=== PATIENT | male | born 1950 | race Caucasian/White ===

== ENCOUNTER → 2020-10-04 14:09 | Outpatient (BNVA) | payer MEDICARE, MEDICAID, SELFPAY | PROVIDERS: PCP Family Medicine; Visit Provider Urology | DX: Z76.89 Persons encountering health services in other specified circumstances (principal) | CPT/HCPCS: 99202 ==

== ENCOUNTER → 2020-10-27 14:08 | Outpatient (BNVA) | payer MEDICARE, MEDICAID, SELFPAY | PROVIDERS: PCP Family Medicine; Visit Provider Surgery Vascular Surgery | DX: I73.9 Peripheral vascular disease, unspecified (principal) | CPT/HCPCS: 99212 ==

== ENCOUNTER → 2020-11-01 14:13 | Outpatient (BNVA) | payer MEDICARE, MEDICAID, SELFPAY | PROVIDERS: PCP Family Medicine; Visit Provider Nurse Practitioner Gerontology | DX: E11.65 Type 2 diabetes mellitus with hyperglycemia (principal); E11.42 Type 2 diabetes mellitus with diabetic polyneuropathy; E11.22 Type 2 diabetes mellitus with diabetic chronic kidney disease; I12.9 Hypertensive chronic kidney disease with stage 1 through stage 4 chronic kidney disease, or unspecified chronic kidney disease; N18.30 Chronic kidney disease, stage 3 unspecified; Z79.4 Long term (current) use of insulin; E78.5 Hyperlipidemia, unspecified | CPT/HCPCS: 82947; 99212 ==

== ENCOUNTER 2020-12-01 14:03 | Outpatient (REF) | payer MEDICARE, MEDICAID, SELFPAY ==
--- NOTE | 2020-12-01 | US_ITS ---
EXAMINATION: COLOR-FLOW DUPLEX IMAGING OF THE UNILATERAL RIGHT LOWER EXTREMITY ARTERIAL SYSTEM. VELOCITY MEASUREMENTS THROUGHOUT THE FEMORAL ARTERIES WITH ANKLE-BRACHIAL PERIPHERAL ARTERIAL TESTING. CLINICAL INFORMATION: This is a 69-year-old male who status post left below-knee amputation. Peripheral arterial disease. Interventional Radiologist: Charlie Sol M.D., F.S.I.R., F.A.C.R. RIGHT FEMORAL RUNOFF VELOCITIES: The right common femoral artery measures 204 cm/s and biphasic. The right profunda femoral artery is 384 cm/s and is biphasic. Right proximal superficial femoral artery measures 85 cm/s and biphasic. Mid superficial femoral artery is 245 cm/s and biphasic. Distal right superficial femoral artery measures 59 cm/s and is biphasic. Right popliteal velocity measures 60 cm/s and is biphasic. The posterior tibial artery velocity measures 47 cm/s and was monophasic. The right ankle-brachial index is 0.48. The right ankle waveform is flattened. There is a question of subcutaneous diffuse edema. US/US DAVON complete IMPRESSION: 1. There is hemodynamically significant atherosclerotic disease involving the right lower extremity inflow and outflow. There is a hemodynamically significant stenosis in the region of the right common femoral artery as well as the mid right superficial femoral artery.
--- NOTE | 2020-12-01 14:08 | US_ITS ---
EXAMINATION: COLOR-FLOW DUPLEX IMAGING OF THE UNILATERAL RIGHT LOWER EXTREMITY ARTERIAL SYSTEM. VELOCITY MEASUREMENTS THROUGHOUT THE FEMORAL ARTERIES WITH ANKLE-BRACHIAL PERIPHERAL ARTERIAL TESTING. CLINICAL INFORMATION: This is a 69-year-old male who status post left below-knee amputation. Peripheral arterial disease. Interventional Radiologist: Charlie Sol M.D., F.S.I.R., F.A.C.R. RIGHT FEMORAL RUNOFF VELOCITIES: The right common femoral artery measures 204 cm/s and biphasic. The right profunda femoral artery is 384 cm/s and is biphasic. Right proximal superficial femoral artery measures 85 cm/s and biphasic. Mid superficial femoral artery is 245 cm/s and biphasic. Distal right superficial femoral artery measures 59 cm/s and is biphasic. Right popliteal velocity measures 60 cm/s and is biphasic. The posterior tibial artery velocity measures 47 cm/s and was monophasic. The right ankle-brachial index is 0.48. The right ankle waveform is flattened. There is a question of subcutaneous diffuse edema. US/US arterial duplex LE RT IMPRESSION: 1. There is hemodynamically significant atherosclerotic disease involving the right lower extremity inflow and outflow. There is a hemodynamically significant stenosis in the region of the right common femoral artery as well as the mid right superficial femoral artery.
== END 2020-12-01 14:04 | disposition home or self-care (01) ==
LOC: HO.US 14:03
PROVIDERS: Visit Provider Surgery Vascular Surgery
DX: I70.213 Atherosclerosis of native arteries of extremities with intermittent claudication, bilateral legs (principal)
CPT/HCPCS: 93923; 93926

== ENCOUNTER → 2020-12-15 13:50 | Outpatient (BNVA) | payer MEDICARE, MEDICAID, SELFPAY | PROVIDERS: PCP Family Medicine; Referring Provider Family Medicine; Visit Provider Surgery Vascular Surgery | DX: I73.9 Peripheral vascular disease, unspecified (principal) | CPT/HCPCS: 99212 ==

== ENCOUNTER → 2021-01-17 15:32 | Outpatient (BNVA) | payer MEDICARE, MEDICAID, SELFPAY | PROVIDERS: PCP Family Medicine; Visit Provider Surgery Vascular Surgery | DX: Z89.512 Acquired absence of left leg below knee (principal) | CPT/HCPCS: 99212 ==

== ENCOUNTER 2021-01-23 06:40 | Day surgery (SDC) | payer MEDICARE, MEDICAID, SELFPAY ==
[2021-01-23 06:55] VITALS: BMI 27.0
--- NOTE | 2021-01-23 07:27 | P.CONAN_ITS ---
[facility] Active Problems Active Problems: All Active Problems (Updated 11/01/20 @ 15:30 by HEVER Ibarra) Status post below-knee amputation of left lower extremity (Acute) Type 2 diabetes mellitus with polyneuropathy (Acute) Type 2 diabetes mellitus with chronic kidney disease (Acute) Chronic kidney disease, stage 3 (Acute) Type 2 diabetes mellitus with hyperglycemia, with long-term current use of insulin (Acute) Essential hypertension (Acute) Hyperlipidemia LDL goal <70 (Acute) PAD (peripheral artery disease) (Acute) Diabetic neuropathy associated with diabetes mellitus due to underlying condition (Acute) Urinary incontinence (Acute) Past Medical History Medical History Chronic kidney disease, stage 3 Depression Essential hypertension Hyperlipidemia LDL goal <70 Peripheral neuropathy Type 2 diabetes mellitus with chronic kidney disease Type 2 diabetes mellitus with hyperglycemia, with long-term current use of insulin Type 2 diabetes mellitus with polyneuropathy Family History Family History Father Diabetes Mother Diabetes Son Diabetes Surgical History Surgical History History of below-knee amputation of left lower extremity Hx of colonoscopy Social History Social History Smoking Status: Current every day smoker Cigarettes Per Day: 3 Use of substances other than those prescribed or required for medical reasons: No Advance Directives: No Advance Directives Information Provided: Yes Meds Allergies Allergy/AdvReac Type Severity Reaction Status Date / Time No Known Allergies Allergy Verified 01/17/21 15:32 [No Known Allergies*] Active Medications: Current Medications Generic Name Dose Route Start Last Admin Trade Name Freq PRN Reason Stop Dose Admin Fentanyl 25 mcg 01/23/21 07:13 Fentanyl Citrate/Pf 100 Mcg/2 Ml Vial IVPUSH Q5M PRN Pain, Moderate (Pain Scale 4-6 Fentanyl 50 mcg 01/23/21 07:14 Fentanyl Citrate/Pf 100 Mcg/2 Ml Vial IVPUSH Q5M PRN Pain, Severe (Pain Scale 7-10) Oxycodone HCl 5 mg 01/23/21 07:14 Oxycodone Hcl Immed Release 5 Mg Tablet PO ONCE PRN Pain, Severe (Pain Scale 7-10) Home Medications Medication Instructions Recorded Confirmed Last Taken Type amlodipine 10 mg tablet 10 mg PO DAILY 10/04/20 11/01/20 Unknown History aspirin 81 mg chewable tablet 1 tab PO DAILY 10/04/20 11/01/20 Unknown History atorvastatin 80 mg tablet 80 mg PO BEDTIME 10/04/20 11/01/20 Unknown History blood sugar diagnostic #10 ea 10/04/20 11/01/20 Unknown History bupropion HCl 100 mg tablet,12 hr 100 mg PO QAM 10/04/20 11/01/20 Unknown History sustained-release carvedilol 6.25 mg tablet 6.25 mg PO BID 10/04/20 11/01/20 Unknown History citalopram 40 mg tablet 40 mg PO DAILY 10/04/20 11/01/20 Unknown History ergocalciferol (vitamin D2) 1,250 1,250 mcg PO QWEEK 10/04/20 11/01/20 Unknown History mcg (50,000 unit) capsule folic acid 1 mg tablet 1 mg PO QAM 10/04/20 11/01/20 Unknown History furosemide 20 mg tablet 20 mg PO QAM 10/04/20 11/01/20 Unknown History hydralazine 50 mg tablet 50 mg PO TID 10/04/20 11/01/20 Unknown History melatonin 5 mg tablet 5 mg PO BEDTIME PRN 10/04/20 11/01/20 Unknown History pen needle, diabetic 32 gauge x #50 ea 10/04/20 11/01/20 Unknown History thiamine HCl (vitamin B1) 100 mg 100 mg PO DAILY 10/04/20 11/01/20 Unknown History tablet lancets #100 ea 11/01/20 11/01/20 Unknown History Exam Exam Date and Time: January 23, 2021 76 Height,Weight and Vital Signs: Height 5 ft 8 in Weight 80.739 kg Airway Mallampati Class: III Loose/Missing/Broken Teeth: Yes, Upper and Lower
--- NOTE | 2021-01-23 07:37 | PC.NURSE ---
CONGESTED. HX OF SMOKING. COUHGS AND CONGESTION GOES AWAY.
[2021-01-23 08:30] LABS: Glucose, Whole Blood 207 mg/dL (60-115)
[2021-01-23 08:37] VITALS: BP 194/81; PULSE 72; RESP 12; TEMP 36.3; O2SAT 100
[2021-01-23 08:42] VITALS: BP 186/78; PULSE 69; RESP 16; O2SAT 100
[2021-01-23 08:47] VITALS: BP 183/76; PULSE 69; RESP 18; O2SAT 99
--- NOTE | 2021-01-23 08:47 | MHC.SHP ---
Pre-Procedural Eval Section B Chief Complaint: amp complications Allergies: Allergies Allergy/AdvReac Type Severity Reaction Status Date / Time No Known Allergies Allergy Verified 01/17/21 15:32 [No Known Allergies*] Plan I have reviewed the history and physical and performed a pertinent physical examination on my patient. No changes have occurred unless specified.
--- NOTE | 2021-01-23 08:47 | W.PM.OPN ---
Operative Note Operative Note Date of Service: 01/23/21 Narrative: Operative note by [facility] Preoperative diagnosis: Nonhealing left lateral BKA stump Postoperative diagnosis: Same Procedure: Revision of left below-knee stump Surgeon:Vick Yin M.D. Transcription Manager: Payam Anesthesia: General Specimens: 1 Drains: None Estimated blood loss: Minimal Indications: 70-year-old gentleman with below-knee amputation. He has developed a left lateral side abscess which was drained in the office. He continues to have a significant amount of pain in that area. He does have a nonhealing tract. He now presents for revision of this below-knee stump. The patient has signed the informed consent after reviewing risks, complications, benefits, and alternatives previously discussed with the patient in my office. The patient was given the opportunity to ask any additional questions or voice any concerns. All questions were answered to the patient's satisfaction. Procedure in detail: Patient was taken to the operating room prior to which timeout was called for patient identification site verification. Left leg was prepped and draped in standard surgical fashion. A curvilinear ellipse was made on the lateral aspect approximately 10 cm in diameter. This was taken down in to the subcu soft tissue. There was a cyst like material encountered which was excised in its entirety. Amnio fill was placed within the wound. Deep layer was reapproximated using 2 0 Polysorb superficial layer with 3-0 poly Sorb finally skin was closed with 3-0 nylon in a mattress fashion. Sterile dressing was applied. At the end of the case sponge instrument counts were correct patient. Patient tolerated the procedure well and returned to recovery with stable vitals. This note is constructed using voice recognition software. While every effort has been made to ensure accuracy, service tech/welder errors may have been included. Thank you for allowing me to participate in the care of your patient. Yours sincerely, Vick Yin MD, FACS, R.P.V.I.
[2021-01-23 08:52] VITALS: BP 173/72; PULSE 73; RESP 17; O2SAT 96
[2021-01-23 09:07] VITALS: BP 179/73; PULSE 74; RESP 17; TEMP 36.3; O2SAT 96
[2021-01-23 09:22] VITALS: BP 181/76; PULSE 73; RESP 17; TEMP 36.3; O2SAT 96
== END 2021-01-23 09:56 | disposition home or self-care (01) ==
PROVIDERS: PCP Family Medicine; Visit Provider Surgery Vascular Surgery
PROC: (CPT 27884; principal; 2021-01-23 07:30)
DX: T87.89 Other complications of amputation stump (principal); Z89.512 Acquired absence of left leg below knee; E11.22 Type 2 diabetes mellitus with diabetic chronic kidney disease; E11.65 Type 2 diabetes mellitus with hyperglycemia; E11.42 Type 2 diabetes mellitus with diabetic polyneuropathy; I12.9 Hypertensive chronic kidney disease with stage 1 through stage 4 chronic kidney disease, or unspecified chronic kidney disease; N18.30 Chronic kidney disease, stage 3 unspecified; F32.9 Major depressive disorder, single episode, unspecified; E78.5 Hyperlipidemia, unspecified; Z79.4 Long term (current) use of insulin; F17.210 Nicotine dependence, cigarettes, uncomplicated; Z79.899 Other long term (current) drug therapy; Z79.82 Long term (current) use of aspirin
CPT/HCPCS: 27884; 82947; 88305; J0690; J1100; J2250; J2405; J3010; J3590

== ENCOUNTER → 2021-02-07 15:09 | Outpatient (BNVA) | payer MEDICARE, MEDICAID, SELFPAY | PROVIDERS: PCP Family Medicine; Visit Provider Surgery Vascular Surgery | DX: I73.9 Peripheral vascular disease, unspecified (principal) | CPT/HCPCS: 99212 ==

== ENCOUNTER → 2021-11-29 14:20 | Outpatient (BNVA) | payer MEDICARE, MEDICAID, SELFPAY | PROVIDERS: PCP Family Medicine; Visit Provider Urology | DX: R39.15 Urgency of urination (principal); N32.81 Overactive bladder; E11.42 Type 2 diabetes mellitus with diabetic polyneuropathy | CPT/HCPCS: 51798; 99212 ==

== ENCOUNTER → 2021-12-20 12:12 | Outpatient (BNVA) | payer MEDICARE, MEDICAID, SELFPAY | PROVIDERS: PCP Family Medicine; Referring Provider Family Medicine; Visit Provider Internal Medicine | DX: I25.10 Atherosclerotic heart disease of native coronary artery without angina pectoris (principal); I35.0 Nonrheumatic aortic (valve) stenosis; E11.22 Type 2 diabetes mellitus with diabetic chronic kidney disease; I12.9 Hypertensive chronic kidney disease with stage 1 through stage 4 chronic kidney disease, or unspecified chronic kidney disease; N18.30 Chronic kidney disease, stage 3 unspecified; E78.5 Hyperlipidemia, unspecified; Z86.73 Personal history of transient ischemic attack (TIA), and cerebral infarction without residual deficits; Z79.4 Long term (current) use of insulin | CPT/HCPCS: 93005; 99212 ==

== ENCOUNTER 2022-02-19 18:34 | Inpatient (IN) | payer MEDICARE, MEDICAID, SELFPAY ==
[2022-02-19] VITALS (9 sets, daily range): BP systolic 147–154; BP diastolic 59–63; PULSE 70–75; RESP 15–25; TEMP 36.7–37.3; O2SAT 90–99; BMI 22.0
--- NOTE | ~2022-02-19 | CT_ITS ---
EXAMINATION: CT HEAD WITHOUT CONTRAST CT CERVICAL SPINE WITHOUT CONTRAST CLINICAL INFORMATION: Fall. COMPARISON: CT head 01/08/2019 TECHNIQUE: Imaging was performed from the skull base to vertex without intravenous administration of contrast. In addition, helical noncontrast CT imaging was acquired through the cervical spine and source images were reviewed along with axial reconstructions and sagittal and coronal MPRs. [This CT examination was performed using dose optimization techniques as appropriate, variously including the following: *Automated exposure control *Adjustment of mA and/or kV according to patient size (this includes techniques or standardized protocols for targeted exams where dose is matched to indication/reason for exam; i.e. extremities or head) *Use of iterative reconstruction technique] DLP: 1111 mGy-cm FINDINGS: HEAD: No intracranial mass, hemorrhage, or midline shift is visualized. There is generalized global volume loss. There is moderate prominence of the ventricles and the sulci . There is marked hypodensity of the periventricular white matter due to chronic small vessel ischemic disease. There are vascular calcifications of the internal carotid arteries bilaterally. No extra-axial collections are identified. The paranasal sinuses and mastoid air cells are well aerated. CERVICAL SPINE: There is no evidence of acute cervical spine fracture. Vertebral bodies remain normal in height. Cervical vertebrae have normal alignment. Cervical disc heights are normal. The facet joints are normal. There are vascular calcification of the carotids and vertebral arteries. Limited assessment of the lung apices is unremarkable. CT/CT cervical spine wo con IMPRESSION: 1. No acute intracranial pathology. 2. No CT evidence of acute cervical spine fracture or traumatic subluxation
--- NOTE | ~2022-02-19 | XR_ITS ---
EXAMINATION: XR CHEST CLINICAL INFORMATION: Cough and fever COMPARISON: 05/11/2020 TECHNIQUE: Frontal view of the chest was obtained. FINDINGS: The heart and pulmonary vessels appear normal. There is a new area of patchy consolidation in the left mid lung. Previously seen left basilar infiltrate on 05/11/2020 has cleared. The right lung is clear. No pleural effusions are seen XR/XR chest 1V IMPRESSION: New left midlung infiltrate consistent with pneumonia.
--- NOTE | ~2022-02-19 | CT_ITS ---
EXAMINATION: CT HEAD WITHOUT CONTRAST CT CERVICAL SPINE WITHOUT CONTRAST CLINICAL INFORMATION: Fall. COMPARISON: CT head 01/08/2019 TECHNIQUE: Imaging was performed from the skull base to vertex without intravenous administration of contrast. In addition, helical noncontrast CT imaging was acquired through the cervical spine and source images were reviewed along with axial reconstructions and sagittal and coronal MPRs. [This CT examination was performed using dose optimization techniques as appropriate, variously including the following: *Automated exposure control *Adjustment of mA and/or kV according to patient size (this includes techniques or standardized protocols for targeted exams where dose is matched to indication/reason for exam; i.e. extremities or head) *Use of iterative reconstruction technique] DLP: 1111 mGy-cm FINDINGS: HEAD: No intracranial mass, hemorrhage, or midline shift is visualized. There is generalized global volume loss. There is moderate prominence of the ventricles and the sulci . There is marked hypodensity of the periventricular white matter due to chronic small vessel ischemic disease. There are vascular calcifications of the internal carotid arteries bilaterally. No extra-axial collections are identified. The paranasal sinuses and mastoid air cells are well aerated. CERVICAL SPINE: There is no evidence of acute cervical spine fracture. Vertebral bodies remain normal in height. Cervical vertebrae have normal alignment. Cervical disc heights are normal. The facet joints are normal. There are vascular calcification of the carotids and vertebral arteries. Limited assessment of the lung apices is unremarkable. CT/CT head/brain wo con IMPRESSION: 1. No acute intracranial pathology. 2. No CT evidence of acute cervical spine fracture or traumatic subluxation
--- NOTE | 2022-02-19 19:01 | ED.WEAKNESS ---
HPI - Weakness General Chief complaint: Failure to Thrive Stated complaint: general malaise Time Seen by Provider: 02/19/22 19:01 Source: EMS Mode of arrival: EMS Limitations: altered mental status History of Present Illness HPI Narrative: Patient with history of dementia brought by EMS for increased lethargic, malaise, fever 100.6 with chills and been coughing for last 3 days. Yesterday patient slumped down when he tried to get up from his bed without asking for help. Patient not eating since yesterday and sleeping all the time Related Data Home Medications Medication Instructions Recorded Confirmed amlodipine 10 mg tablet 10 mg PO DAILY 10/04/20 02/20/22 aspirin 81 mg chewable tablet 1 tab PO DAILY 10/04/20 02/20/22 atorvastatin 80 mg tablet 80 mg PO BEDTIME 10/04/20 02/20/22 blood sugar diagnostic #10 ea 10/04/20 02/20/22 bupropion HCl 100 mg tablet,12 hr 100 mg PO QAM 10/04/20 02/20/22 sustained-release carvedilol 6.25 mg tablet 6.25 mg PO BID 10/04/20 02/20/22 citalopram 40 mg tablet 40 mg PO DAILY 10/04/20 02/20/22 ergocalciferol (vitamin D2) 1,250 1,250 mcg PO QWEEK 10/04/20 02/20/22 mcg (50,000 unit) capsule folic acid 1 mg tablet 1 mg PO QAM 10/04/20 02/20/22 furosemide 20 mg tablet 20 mg PO QAM 10/04/20 02/20/22 hydralazine 50 mg tablet 50 mg PO TID 10/04/20 02/20/22 melatonin 5 mg tablet 5 mg PO BEDTIME PRN 10/04/20 02/20/22 pen needle, diabetic 32 gauge x #50 ea 10/04/20 02/20/22 thiamine HCl (vitamin B1) 100 mg 100 mg PO DAILY 10/04/20 02/20/22 tablet lancets #100 ea 11/01/20 02/20/22 Previous Rx's Medication Instructions Recorded dulaglutide 1.5 mg/0.5 mL 1.5 mg (0.5 mL) SUBCUT QWEEK 28 11/01/20 subcutaneous pen injector Days #2 ml (Trulicity) insulin lispro 100 unit/mL 8 unit (0.08 mL) SUBCUT TID #15 ml 11/01/20 subcutaneous pen insulin degludec 200 unit/mL (3 24 unit (0.12 mL) SUBCUT DAILY 30 11/09/20 mL) subcutaneous pen (Tresiba Days #9 ml FlexTouch U-200 insulin) oxycodone-acetaminophen 5 mg-325 1 tab PO Q4-6H PRN #10 tab 01/23/21 mg tablet (Percocet) mirabegron 25 mg tablet,extended 25 mg PO QAM 90 Days #90 tab 11/29/21 release 24 hr (Myrbetriq) tamsulosin 0.4 mg capsule 0.4 mg PO BEDTIME 90 Days #90 cap 11/29/21 Allergies Allergy/AdvReac Type Severity Reaction Status Date / Time No Known Allergies Allergy Verified 12/20/21 12:34 [No Known Allergies*] Review of Systems Review of Systems: Yes all other systems are reviewed and are negative PMFSH Past Medical History Medical History Chronic kidney disease, stage 3 CVA (cerebral vascular accident) Depression Essential hypertension Hyperlipidemia LDL goal <70 Peripheral neuropathy Type 2 diabetes mellitus with chronic kidney disease Type 2 diabetes mellitus with hyperglycemia, with long-term current use of insulin Type 2 diabetes mellitus with polyneuropathy Surgical History History of below-knee amputation of left lower extremity Hx of colonoscopy Family History Family History Father Diabetes Mother Diabetes Son Diabetes Social History Social History Patient Tobacco Use Status: Current everyday Tobacco user Cigarettes Per Day: 6 Advance Directives: No Advance Directives Information Provided: No Physical Exam Vital Signs: Vital Signs: Last Vital Signs Temp 99.1 F 02/19/22 21:00 Pulse 73 02/20/22 00:50 Resp 25 H 02/19/22 23:42 BP 154/59 H 02/19/22 21:40 Pulse Ox 96 02/20/22 00:50 Oxygen Flow Rate 2 02/19/22 21:41 BMI result Body Mass Index 22.0 Appearance: Lethargic but awake No acute distress. Eyes: PERRLA, No Nystagmus ENT: Pharynx normal. Oral Mucosa moist Neck: Normal inspection. Neck supple. CVS: Normal heart rate and rhythm. Pulses normal. Respiratory: No respiratory distress. Equal air entry bilateral, occasional crackles bilateral Abdomen: Soft and nontender. Bowel sounds are present, no mass palpable, no CVA tenderness Skin: Skin warm and dry. Normal skin color. Normal skin turgor. Extremities: No lower extremity edema. No calf tenderness L BKA Neuro: Oriented X 1-2. No motor deficit. MDM - Weakness MDM Narrative Medical decision making narrative: Patient with 3 days of cough malaise with IgE fever chills workup showed leukocytosis of 25.5 potassium of 3.1 with creatinine of 3.14 increased from 1.95 in 2019 chest x-ray showed left mid lung pneumonia. COVID-19 was negative patient was given IV fluids IV Rocephin blood cultures were drawn lactic acid level was 0.8 after IV fluids patient more awake and alert almost back to baseline will admit patient for IV antibiotic for pneumonia also will do CT scan of the head has patient fell at home CT scan of the head and C-spine negative for anything acute Lab Data Attestation: I reviewed the patient's lab results. Result diagrams: 02/19/22 19:38 02/19/22 19:38 Labs: Lab Results 02/19/22 02/19/22 02/19/22 Range/Units 19:37 19:37 19:38 WBC 25.5 H (4.8-10.8) X10*3/uL RBC 4.42 L (4.60-5.80) X10*6/uL Hgb 11.2 L (14.0-18.0) g/dl Hct 34.3 L (42.0-52.0) % MCV 77.6 L (80.0-98.0) fL MCH 25.3 L (27.0-33.0) pg MCHC 32.7 (31.0-36.0) g/dl RDW 14.3 (11.0-16.0) % Plt Count 237 (160-400) X10*3/uL MPV 10.5 (9.4-12.4) fL Immature Gran % (Auto) 3.5 H (0.0-0.4) % Neut % (Auto) 83.2 H (45-73) % Lymph % (Auto) 7.0 L (20-40) % [place] % (Auto) 6.1 (2-11) % Eos % (Auto) 0.0 (0-4) % Baso % (Auto) 0.2 (0-2) % Lymph # (Auto) 1.8 (1.2-4.9) X10*3/uL [place] # (Auto) 1.5 H (0.1-1.2) X10*3/uL Eos # (Auto) 0.0 (0.0-0.4) X10*3/uL Baso # (Auto) 0.0 (0.0-0.2) X10*3/uL Abs Immat Gran (auto) 0.88 H (0.00-0.03) X10*3/uL Absolute Neuts (auto) 21.2 H (2.0-8.3) x10*3/uL Absolute Nucleated RBC 0.000 (0.0-0.012) X10*3/uL Nucleated RBC % (auto) 0.0 (0.0-0.2) /100WBC Smear Tech's Comments VERIFIED Sodium (135-145) mmol/L Potassium (3.3-5.1) mmol/L Chloride (96-108) mmol/L Carbon Dioxide (22-29) mmol/L Anion Gap (12-20) BUN (9-16) mg/dL Creatinine (0.5-1.4) mg/dL Estim Creat Clear Calc Estimated GFR Random Glucose (60-115) mg/dL Lactic Acid 0.8 (0.5-2.0) mmol/L Calcium (8.4-10.2) mg/dL Magnesium (1.6-2.6) mg/dL Total Bilirubin (0.0-1.0) mg/dL AST (5-37) U/L ALT (0-40) U/L Alkaline Phosphatase (39-117) U/L Total Protein (6.5-8.0) g/dL Albumin (3.5-5.0) g/dL Lipase (8-78) U/L COVID-19 (MAC) Negative (Negative) COVID-19 Clin Com See Note 02/19/22 Range/Units 19:38 WBC (4.8-10.8) X10*3/uL RBC (4.60-5.80) X10*6/uL Hgb (14.0-18.0) g/dl Hct (42.0-52.0) % MCV (80.0-98.0) fL MCH (27.0-33.0) pg MCHC (31.0-36.0) g/dl RDW (11.0-16.0) % Plt Count (160-400) X10*3/uL MPV (9.4-12.4) fL Immature Gran % (Auto) (0.0-0.4) % Neut % (Auto) (45-73) % Lymph % (Auto) (20-40) % [place] % (Auto) (2-11) % Eos % (Auto) (0-4) % Baso % (Auto) (0-2) % Lymph # (Auto) (1.2-4.9) X10*3/uL [place] # (Auto) (0.1-1.2) X10*3/uL Eos # (Auto) (0.0-0.4) X10*3/uL Baso # (Auto) (0.0-0.2) X10*3/uL Abs Immat Gran (auto) (0.00-0.03) X10*3/uL Absolute Neuts (auto) (2.0-8.3) x10*3/uL Absolute Nucleated RBC (0.0-0.012) X10*3/uL Nucleated RBC % (auto) (0.0-0.2) /100WBC Smear Tech's Comments Sodium 130 L (135-145) mmol/L Potassium 3.1 L (3.3-5.1) mmol/L Chloride 96 (96-108) mmol/L Carbon Dioxide 21 L (22-29) mmol/L Anion Gap 16 (12-20) BUN 47 H (9-16) mg/dL Creatinine 3.14 H (0.5-1.4) mg/dL Estim Creat Clear Calc 19.7 Estimated GFR 20 Random Glucose 119 H (60-115) mg/dL Lactic Acid (0.5-2.0) mmol/L Calcium 8.1 L (8.4-10.2) mg/dL Magnesium 2.0 (1.6-2.6) mg/dL Total Bilirubin 0.8 (0.0-1.0) mg/dL AST 54 H (5-37) U/L ALT 37 (0-40) U/L Alkaline Phosphatase 73 (39-117) U/L Total Protein 6.4 L (6.5-8.0) g/dL Albumin 3.2 L (3.5-5.0) g/dL Lipase 17 (8-78) U/L COVID-19 (MAC) (Negative) COVID-19 Clin Com Discharge Plan Discharge Clinical Impression: Pneumonia, Acute renal failure Patient Disposition: Admitted As Inpatient
[2022-02-19 19:46] LABS: Basophils Percent Auto 0.2 % (0-2); Hematocrit 34.3 % (42.0-52.0); Hemoglobin 11.2 g/dl (14.0-18.0); Imm Gran Abs Auto 0.88 X10*3/uL (0.00-0.03); Imm Gran Pct Auto 3.5 % (0.0-0.4); Lymphocytes Absolute Auto 1.8 X10*3/uL (1.2-4.9); MANUAL DIFF FLAG SCAN; Mean Corpuscular HGB Conc 32.7 g/dl (31.0-36.0); Mean Corpuscular Hemoglobin 25.3 pg (27.0-33.0); Mean Corpuscular Volume 77.6 fL (80.0-98.0); Mean Platelet Volume 10.5 fL (9.4-12.4); Monocytes Absolute Auto 1.5 X10*3/uL (0.1-1.2); Monocytes Percent Auto 6.1 % (2-11); Neutrophils Absolute Auto 21.2 x10*3/uL (2.0-8.3); Neutrophils Percent Auto 83.2 % (45-73); Platelet Count 237 X10*3/uL (160-400); Red Blood Count 4.42 X10*6/uL (4.60-5.80); Red Cell Distribution Width 14.3 % (11.0-16.0); SCAN SMEAR FLAG 1; White Blood Count 25.5 X10*3/uL (4.8-10.8)
[2022-02-19 20:00] LABS: COVID-19 Test Negative (Negative); Lactic Acid 0.8 mmol/L (0.5-2.0)
[2022-02-19 20:03] LABS: SLIDE REVIEW VERIFIED
[2022-02-19 20:04] LABS: Alanine Aminotransferase 37 U/L (0-40); Albumin Level 3.2 g/dL (3.5-5.0); Alkaline Phosphatase 73 U/L (39-117); Anion Gap 16 (12-20); Aspartate Amino Transferase 54 U/L (5-37); Bilirubin Total 0.8 mg/dL (0.0-1.0); Blood Urea Nitrogen 47 mg/dL (9-16); Calcium 8.1 mg/dL (8.4-10.2); Carbon Dioxide 21 mmol/L (22-29); Chloride 96 mmol/L (96-108); Creatinine Clr Calc Pharmacy 19.7; Estimated Glomerular Filt Rate 20; Glucose Random 119 mg/dL (60-115); Lipase 17 U/L (8-78); Potassium 3.1 mmol/L (3.3-5.1); Sodium 130 mmol/L (135-145); Total Protein 6.4 g/dL (6.5-8.0)
[2022-02-19] MEDS: 0.9 % Sodium Chloride 1,000 ML 999 ML IV ×2 (20:30→22:35)
[2022-02-19] MEDS: cefTRIAXone sodium 1 GM in 0.9 % Sodium Chloride 50 ML IV (21:39)
[2022-02-19] MEDS: Doxycycline Hyclate 100 MG in 0.9 % Sodium Chloride 250 ML 166.67 MG IV (22:29)
[2022-02-19] MEDS: Potassium Chloride Packet 20 MEQ PACKET 40 MEQ PO (22:29)
[2022-02-19] MEDS: Acetaminophen Supp 650 MG SUPP.RECT PR (23:03)
--- NOTE | 2022-02-19 23:30 | PC.NURSE ---
patient noted to be incontinent of urine, incontinence care provided with Ed RN, condom catheter placed to collect urine sample.
[2022-02-19] MEDS: Albuterol/Iprat 2.5/0.5MG 3 ML AMPUL.NEB INHALE (23:40)
[2022-02-20] VITALS (8 sets, daily range): BP systolic 154–180; BP diastolic 62–66; PULSE 73–83; RESP 16–26; TEMP 36.8–37.2; O2SAT 93–100
[2022-02-20 01:09] LABS: Influenza A Positive (Negative); Influenza B2 Negative (Negative)
--- NOTE | 2022-02-20 01:16 | PM.IMHP ---
History of Present Illness Date of Service: 02/20/22 Chief Complaint: weakness Latvian-speaking only, history is obtained with the help of international guest coordinator This is a 71-year-old male with past medical history of CVA, CKD, HTN, HLD, peripheral neuropathy status post BKA of the left, diabetes who presents to the hospital with complaints of generalized weakness, cough, trouble breathing. Patient reports that his symptoms started about 5 days ago, associated with a nonproductive cough, generalized weakness, and shortness of breath. Patient denies any sputum production but, reports fever of 100.6 at home, low appetite, has not been eating Or drinking well for the past 4 days due to loss of appetite. he is complaining of neck, chest, and generalized pain, he has also had diarrhea for the past 3 days, about 2-3 episodes daily, nonbloody, he is complaining of urinary frequency that is chronic but also dysuria for the past few days. Patient otherwise denies any headache, change in vision, no numbness weakness or tingling, no abdominal pain nausea or vomiting. on arrival to the ED patient noted to have respiratory rate of 25, blood pressure stable, satting 90% on room air, currently on 2 L of oxygen satting 100% Labs are significant for WBC count of 25, hemoglobin of 11.2, hematocrit of 34.3 which is around his baseline, sodium of 130, potassium 3.1, creatinine of 3.14 with a baseline around 2, AST of 54, albumin of 3.2, UA positive for leukocyte Estrace Interest WBC, COVID-19 negative, influenza A positive positive chest x-ray shows left mid lung infiltrate consistent with pneumonia head and cervical spine CT showed no acute intracranial pathology or cervical spine fracture or trauma given PARTH, pneumonia with CURB- 65>2 patient requires a medically necessary admission for management and close monitoring as he would do poorly if treated outpatient Review of Systems Review of Systems: Yes all other systems are reviewed and are negative [facility] Medical History Chronic kidney disease, stage 3 CVA (cerebral vascular accident) Depression Essential hypertension Hyperlipidemia LDL goal <70 Peripheral neuropathy Type 2 diabetes mellitus with chronic kidney disease Type 2 diabetes mellitus with hyperglycemia, with long-term current use of insulin Type 2 diabetes mellitus with polyneuropathy Family History Father Diabetes Mother Diabetes Son Diabetes Surgical History History of below-knee amputation of left lower extremity Hx of colonoscopy Social History Patient Tobacco Use Status: Current everyday Tobacco user Cigarettes Per Day: 6 Advance Directives: No Advance Directives Information Provided: No Meds Allergies Allergy/AdvReac Type Severity Reaction Status Date / Time No Known Allergies Allergy Verified 12/20/21 12:34 [No Known Allergies*] Active Medications: Current Medications Acetaminophen (Acetaminophen 325 Mg Tablet) 650 mg PO Q6H PRN PRN Reason: Pain, Mild (Pain Scale 1-3) Docusate Sodium (Docusate Sodium 100 Mg Capsule) 100 mg PO DAILY PRN PRN Reason: Constipation Enoxaparin Sodium (Enoxaparin Sodium 40 Mg/0.4 Ml Syringe) 40 mg SUBCUT Q24H [facility] Azithromycin 500 mg/ Sodium (Chloride) 250 mls @ 125 mls/hr IV Q24H [facility] Ceftriaxone Sodium 1 gm/ (Sodium Chloride) 50 mls @ 100 mls/hr IV Q24H [facility] Ondansetron HCl (Ondansetron Hcl 4 Mg/2 Ml Vial) 4 mg IVPUSH Q8H PRN PRN Reason: Nausea and Vomiting Oseltamivir Phosphate (Oseltamivir Phosphate 30 Mg Capsule) 30 mg PO Q24H [facility] Sodium Chloride (0.9 % Sodium Chloride Flush 3 Ml Syringe) 3 ml IVFLUSH QSHIFT [facility] Home Medications Medication Instructions Recorded Confirmed Last Taken Type amlodipine 10 mg tablet 10 mg PO DAILY 10/04/20 02/20/22 Unknown History aspirin 81 mg chewable tablet 1 tab PO DAILY 10/04/20 02/20/22 Unknown History atorvastatin 80 mg tablet 80 mg PO BEDTIME 10/04/20 02/20/22 Unknown History blood sugar diagnostic #10 ea 10/04/20 02/20/22 Unknown History bupropion HCl 100 mg tablet,12 hr 100 mg PO QAM 10/04/20 02/20/22 Unknown History sustained-release carvedilol 6.25 mg tablet 6.25 mg PO BID 10/04/20 02/20/22 Unknown History citalopram 40 mg tablet 40 mg PO DAILY 10/04/20 02/20/22 Unknown History ergocalciferol (vitamin D2) 1,250 1,250 mcg PO QWEEK 10/04/20 02/20/22 Unknown History mcg (50,000 unit) capsule folic acid 1 mg tablet 1 mg PO QAM 10/04/20 02/20/22 Unknown History furosemide 20 mg tablet 20 mg PO QAM 10/04/20 02/20/22 Unknown History hydralazine 50 mg tablet 50 mg PO TID 10/04/20 02/20/22 Unknown History melatonin 5 mg tablet 5 mg PO BEDTIME PRN 10/04/20 02/20/22 Unknown History pen needle, diabetic 32 gauge x #50 ea 10/04/20 02/20/22 Unknown History thiamine HCl (vitamin B1) 100 mg 100 mg PO DAILY 10/04/20 02/20/22 Unknown History tablet lancets #100 ea 11/01/20 02/20/22 Unknown History Physical Exam Vital Signs and Narrative: Vital Signs: Last Vital Signs Temp 99.1 F 02/19/22 21:00 Pulse 73 02/20/22 00:50 Resp 25 H 02/19/22 23:42 BP 154/59 H 02/19/22 21:40 Pulse Ox 96 02/20/22 00:50 Oxygen Flow Rate 2 02/19/22 21:41 BMI result Body Mass Index 22.0 Const: General: cooperative and no acute distress Orientation/consciousness: patient oriented x3 Eyes: General: appearance normal, both eyes and all related structures Pupils: Equal, round and reactive pupils present Resp: Effort & Inspection: normal respiratory effort Auscultation: clear to auscultation bilaterally Cardio: Rate: regular rate Rhythm: regular rhythm GI: Palpation (GI): Soft to palpation Auscultation: normal bowel sounds Skin: General skin exam: no rashes or lesions noted Neuro: General: patient oriented x3 Cranial nerves: Yes Equal, round and reactive pupils present Cognition (Neuro): normal cognition Extrem: General: Yes normal to inspection and Yes no pedal edema Results Labs CBC and Chem 7: 02/19/22 19:38 02/19/22 19:38 Labs: Laboratory Results - last 24 hr 02/19/22 02/19/22 02/19/22 19:37 19:37 19:38 MCV 77.6 L MCH 25.3 L MCHC 32.7 RDW 14.3 Plt Count 237 MPV 10.5 Immature Gran % (Auto) 3.5 H Neut % (Auto) 83.2 H Lymph % (Auto) 7.0 L Winn % (Auto) 6.1 Eos % (Auto) 0.0 Baso % (Auto) 0.2 Lymph # (Auto) 1.8 Winn # (Auto) 1.5 H Eos # (Auto) 0.0 Baso # (Auto) 0.0 Abs Immat Gran (auto) 0.88 H Absolute Neuts (auto) 21.2 H Absolute Nucleated RBC 0.000 Nucleated RBC % (auto) 0.0 Smear Tech's Comments VERIFIED Anion Gap Estim Creat Clear Calc Estimated GFR Random Glucose Lactic Acid 0.8 Calcium Magnesium Total Bilirubin AST ALT Alkaline Phosphatase Total Protein Albumin Lipase COVID-19 (MAC) Negative COVID-19 Clin Com See Note Influenza Type A (KAREN) Influenza Type B (KAREN) Influenza A & B Note 02/19/22 02/20/22 19:38 00:35 MCV MCH MCHC RDW Plt Count MPV Immature Gran % (Auto) Neut % (Auto) Lymph % (Auto) Winn % (Auto) Eos % (Auto) Baso % (Auto) Lymph # (Auto) Winn # (Auto) Eos # (Auto) Baso # (Auto) Abs Immat Gran (auto) Absolute Neuts (auto) Absolute Nucleated RBC Nucleated RBC % (auto) Smear Tech's Comments Anion Gap 16 Estim Creat Clear Calc 19.7 Estimated GFR 20 Random Glucose 119 H Lactic Acid Calcium 8.1 L Magnesium 2.0 Total Bilirubin 0.8 AST 54 H ALT 37 Alkaline Phosphatase 73 Total Protein 6.4 L Albumin 3.2 L Lipase 17 COVID-19 (MAC) COVID-19 Clin Com Influenza Type A (KAREN) Positive A Influenza Type B (KAREN) Negative Influenza A & B Note See Note Imaging Radiologist's Impressions: Impressions Chest X-Ray 02/19/22 21:00 IMPRESSION: New left midlung infiltrate consistent with pneumonia. Cervical Spine CT 02/19/22 22:30 IMPRESSION: 1. No acute intracranial pathology. 2. No CT evidence of acute cervical spine fracture or traumatic subluxation Head CT 02/19/22 22:30 IMPRESSION: 1. No acute intracranial pathology. 2. No CT evidence of acute cervical spine fracture or traumatic subluxation Assessment and Plan (1) Pneumonia: Status: Acute (2) Acute kidney injury superimposed on CKD: Status: Acute (3) Influenza A: Status: Acute (4) UTI (urinary tract infection): Status: Acute (5) Hypokalemia: Status: Acute Plan 71-year-old male with past medical history of hypertension, diabetes, CKD who presents to the hospital with complaints of generalized weakness, shortness of breath, cough found to be positive for influenza a as well as having pneumonia and PARTH # community-acquired pneumonia - CURB-65 >2 - likely viral with superimposed bacterial infection - influenza A positive - chest x-ray positive for infiltrate - has leukocytosis, tachypnea - will treat with IV antibiotics, Tamiflu - monitor respiratory status # influenza a infection - Tamiflu daily - monitor respiratory status # PARTH on CKD - likely prerenal secondary to dehydration - which she with IV fluids - follow BMP - hold Lasix as well as tamsulosin until creatinine returns to baseline around 2 - avoid nephrotoxins # UTI - his urinary frequency as well as dysuria - positive UA - IV antibiotic - follow cultures # hypokalemia - repleted - follow BMP - will need outpatient follow-up as patient on medications that may potentially increase potassium secretion # hypertension - stable - continue home antihypertensive # diabetes - will continue his home insulin - add low-dose sliding scale insulin, diabetic diet DVT prophylaxis: Heparin subQ as mentioned above, anticipated at a medically necessary admission due to his curb 65 being above 2 as well as PARTH, UTI, and hypokalemia Quality Stroke Does the patient have a stroke diagnosis?: No VTE Prior VTE?: No VTE Risk Level:: Medical - moderate - high VTE Device Contraindication: Treatment Not Indicated VTE Drug Contraindication: N/A - Med Ordered
[2022-02-20] MEDS: Enoxaparin Sodium 40 MG/0.4 ML SYRINGE 30 MG SUBCUT (02:15)
[2022-02-20] MEDS: Oseltamivir Phosphate 30 MG CAPSULE PO ×2 (02:16→22:16)
--- NOTE | 2022-02-20 03:15 | PC.NURSE ---
pt reminded of need for urine sample
[2022-02-20 04:27] LABS: Appearance Urine HAZY; Color Urine YELLOW; Glucose Urine UA NEG (NEG); Leukocyte Esterase Urine 1+ (NEG); Nitrite Urine NEG (NEG); PH 5.5 (5.0-8.0); Specific Gravity - Urine 1.025 (1.005-1.025); UACC Culture Trigger YES; Urine Blood TRACE (NEG); Urine Ketones NEG (NEG); Urine Protein 2+ MG/DL (NEG-TRACE)
[2022-02-20 04:33] LABS: Amorphous Sediment Urine 1+ /LPF; Bacteria Urine 2+ /LPF; Hyaline Casts Urine 0-2 /LPF; RBC Urine 0-2 /HPF (0); Squamous Epithelial Cell Urine 3+ /LPF; WBC Urine 0-2 /HPF (0-4)
[2022-02-20 06:13] LABS: Basophils Percent Auto 0.2 % (0-2); Eosinophils Percent Auto 0.2 % (0-4); Hematocrit 29.9 % (42.0-52.0); Hemoglobin 10.1 g/dl (14.0-18.0); Imm Gran Abs Auto 0.87 X10*3/uL (0.00-0.03); Imm Gran Pct Auto 3.8 % (0.0-0.4); Lymphocytes Percent Auto 8.5 % (20-40); MANUAL DIFF FLAG SCAN; Mean Corpuscular HGB Conc 33.8 g/dl (31.0-36.0); Mean Corpuscular Hemoglobin 26.1 pg (27.0-33.0); Mean Corpuscular Volume 77.3 fL (80.0-98.0); Mean Platelet Volume 10.9 fL (9.4-12.4); Monocytes Absolute Auto 1.6 X10*3/uL (0.1-1.2); Neutrophils Absolute Auto 18.4 x10*3/uL (2.0-8.3); Neutrophils Percent Auto 80.3 % (45-73); Platelet Count 244 X10*3/uL (160-400); Red Blood Count 3.87 X10*6/uL (4.60-5.80); Red Cell Distribution Width 14.4 % (11.0-16.0); SCAN SMEAR FLAG 1; White Blood Count 22.9 X10*3/uL (4.8-10.8)
[2022-02-20 06:48] LABS: SLIDE REVIEW VERIFIED
[2022-02-20 06:53] LABS: Blood Urea Nitrogen 45 mg/dL (9-16)
[2022-02-20 06:55] LABS: Anion Gap 13 (12-20); Calcium 7.8 mg/dL (8.4-10.2); Carbon Dioxide 19 mmol/L (22-29); Chloride 105 mmol/L (96-108); Creatinine Clr Calc Pharmacy 22.6; Estimated Glomerular Filt Rate 23; Glucose Random 108 mg/dL (60-115); Sodium 134 mmol/L (135-145)
[2022-02-20 07:23] LABS: Glucose, Whole Blood 99 mg/dL (60-115)
[2022-02-20] MEDS: 0.9 % Sodium Chloride Flush 3 ML SYRINGE IVFLUSH ×3 (07:30→23:12)
[2022-02-20] MEDS: carvediloL 6.25 MG TABLET PO ×2 (09:11→22:06)
[2022-02-20] MEDS: amLODIPine Besylate 10 MG TABLET PO (09:11)
[2022-02-20] MEDS: hydrALAZINE HCl 50 MG TABLET PO ×3 (09:11→22:02)
[2022-02-20] MEDS: Folic Acid 1 MG TABLET PO (09:11)
[2022-02-20] MEDS: Thiamine HCL 100 MG TABLET PO (09:11)
[2022-02-20] MEDS: Escitalopram Oxalate 20 MG TABLET PO (09:11)
[2022-02-20] MEDS: Potassium Chloride ER 20 MEQ TAB.ER.PRT 40 MEQ PO (09:12)
[2022-02-20] MEDS: Aspirin 81 MG TAB.CHEW PO (09:12)
[2022-02-20] MEDS: Mirabegron 25 MG TAB.ER.24H PO (09:45)
[2022-02-20] MEDS: Ergocalciferol (Vitamin D2) 1,250 MCG CAPSULE 1250 MCG PO (09:45)
[2022-02-20 09:53] LABS: Glucose, Whole Blood 168 mg/dL (60-115)
--- NOTE | 2022-02-20 10:46 | PHA.MEDREC ---
Pharmacy Consult ? Medication Reconciliation Pharmacy has completed the medication reconciliation. MED LIST HANDOUT FROM [facility]. CALLED [facility] FOR INSULIN DOSES. UPDATED MED REC AND MADE CHANGES WITH ESMER
--- NOTE | 2022-02-20 11:30 | PM.EVENT ---
Event Note Date of Service: 02/20/22 Event Note: 71-year-old male with past medical history of hypertension, diabetes, CKD who presents to the hospital with complaints of generalized weakness, shortness of breath, cough found to be positive for influenza a as well as having pneumonia and PARTH Community-acquired pneumonia CURB-65 >2 likely viral with superimposed bacterial infection chest x-ray positive for infiltrate continue Wong/azithro monitor respiratory status Hypokalemia repleted follow BMP Influenza A infection Tamiflu daily, renally dosed PARTH on CKD. Improving prerenal secondary to dehydration follow BMP UTI. Dysuria positive UA Rocephin Follow cx Hypertension stable continue home antihypertensive Diabetes will continue his home insulin add low-dose sliding scale insulin, diabetic diet DVT prophylaxis lovenox Attending Dr. Michael Full code Patient requires continued hospitalization for treatment of community-acquired pneumonia and influenza A. PARTH on CKD slowly improving.
--- NOTE | 2022-02-20 11:45 | PC.NURSE ---
report obtained from dung- patient sleeping, woke to verbal stimulus, no c/o pain or discomfort, vss, call aguayo within reach, will continue to monitor.
[2022-02-20 12:44] LABS: Glucose, Whole Blood 173 mg/dL (60-115)
[2022-02-20] MEDS: Insulin Lispro 100 UNIT/ML 3 ML VIAL SUBCUT ×3 (13:45→22:04)
--- NOTE | 2022-02-20 13:48 | PC.NURSE ---
patient medicated per order, pt ate 100% of lunch, family at bedside, monitor technician intact nsr 70s with occasional pvcs
--- NOTE | 2022-02-20 14:11 | PC.NURSE ---
pt changed, incontinent large volume of liquid diarrhea.
[2022-02-20 17:25] LABS: Glucose, Whole Blood 180 mg/dL (60-115)
--- NOTE | 2022-02-20 17:30 | PC.NURSE ---
patient awake/alert, claim attorney intact nsr 80s, vss, pt family been at beside feeding him dinner from home continue to use thick it in fluids, pt medicated per order, call aguayo within reach, will continue to monitor.
--- NOTE | 2022-02-20 18:13 | PC.NURSE ---
rn-rn report called in to ED overflow.
--- NOTE | 2022-02-20 18:43 | MHC.CM.PN ---
CM met with admitted patient in ED OVER. Lao speaker. cook apprentice pastry used. IMM 02/20. HCP on file. HCP/daughter Anyi Sawyer ([phone]). PCP Debra Medrano. Lives with daughter. Uses wheelchair, BKA. Has glucometer. Daughter is his PRESS MACHINE FEEDER. Pfizer x2. D/C plan: Home with existing services. May need transportation home. CM to follow for d/c needs.
--- NOTE | 2022-02-20 18:45 | PC.NURSE ---
pt changed - large amount of liquid stool/urine.
[2022-02-20] MEDS: cefTRIAXone sodium 1 GM in 0.9 % Sodium Chloride 50 ML IV (19:27)
--- NOTE | 2022-02-20 19:37 | PC.NURSE ---
PT TO OVERFLOW UNIT AT 1915 IN NO ACUTE DISTRESS. SLIGHT DYSPNEA ON EXERTION WITH TRANSFER FROM STRETCHER TO BED. O2 ON AT 2L VIA NC. LUNGS DIM BILAT BASES. MONITOR SHOWS NSR, RATE 70-80'S, NO ECTOPY NOTED. USED URINOL TO VOID 230 ML. SUDANESE SPEAKING ONLY. DROPLET PRECAUTIONS FOR FLU. BP STABLE, AFEBRILE.
[2022-02-20] MEDS: Azithromycin 500 MG in 0.9 % Sodium Chloride 250 ML 125 MG IV (20:13)
[2022-02-20 21:15] LABS: Glucose, Whole Blood 251 mg/dL (60-115)
[2022-02-20] MEDS: Atorvastatin Calcium 80 MG TABLET PO (22:01)
[2022-02-20] MEDS: Melatonin 3 MG TABLET 4.5 MG PO (22:02)
[2022-02-20] MEDS: Insulin Glargine,Hum.rec.anlog 100 UNIT/ML 10 ML VIAL 21 UNIT SUBCUT (22:03)
[2022-02-21] VITALS: BP 159/63; PULSE 74; RESP 25; TEMP 36.6; O2SAT 98
--- NOTE | 2022-02-21 01:22 | PC.NURSE ---
Pt seen on bed at 2330 asleep, awaken appropriately, denies any pain, tolerating O2 at 2L/min via NC, occasional dry cough noted, LS dim, SR in the 70s, callbell in reach, voiding in the urinal.
[2022-02-21 04:00] VITALS: BP 159/61; PULSE 68; RESP 22; TEMP 36.7; O2SAT 95
[2022-02-21] MEDS: Enoxaparin Sodium 30 MG/0.3 ML SYRINGE SUBCUT (06:35)
[2022-02-21 07:35] LABS: Anion Gap 13 (12-20); Blood Urea Nitrogen 38 mg/dL (9-16); Calcium 8.2 mg/dL (8.4-10.2); Carbon Dioxide 19 mmol/L (22-29); Chloride 108 mmol/L (96-108); Creatinine Clr Calc Pharmacy 25.1; Estimated Glomerular Filt Rate 26; Glucose Random 113 mg/dL (60-115); Potassium 3.3 mmol/L (3.3-5.1); Sodium 137 mmol/L (135-145)
[2022-02-21 08:03] VITALS: BP 159/61; PULSE 82; RESP 30; TEMP 36.7; O2SAT 96
[2022-02-21 08:21] LABS: Glucose, Whole Blood 129 mg/dL (60-115)
--- NOTE | 2022-02-21 08:48 | HO.PM.IMPN ---
Subjective Subjective Date of Service: 02/21/22 Interval History: pna .flu ,parth Review of Systems Still has generalized weakness, cough, shortness of breath similar to yesterday. Denies any fever or chills Physical Exam Vital Signs: Vital Signs: Last Vital Signs Temp 98.1 F 02/21/22 08:03 Pulse 82 02/21/22 08:03 Resp 30 H 02/21/22 08:03 BP 159/61 H 02/21/22 08:03 Pulse Ox 96 02/21/22 08:03 Oxygen Flow Rate 2 02/19/22 21:41 BMI result Body Mass Index 22.0 Appearance: Alert.? Oriented X3.? not in distress.? cvs: rrr, [id number] , no murmur res: dimished breath sounds at bases , no rales or wheezing abd: no rebound or guarding ,nt, bs present. ext pulses present , no cyanosis ,Gait well balanced well coordinated. neuro: axo3 , nonfocal. Objective Data Active Medications Acetaminophen (Acetaminophen 325 Mg Tablet) 650 mg PO Q6H PRN PRN Reason: Pain, Mild (Pain Scale 1-3) Amlodipine Besylate (Amlodipine Besylate 10 Mg Tablet) 10 mg PO DAILY [facility]; Protocol Last Admin: 02/20/22 09:11 Dose: 10 mg Documented by: SIMEON Aspirin (Aspirin 81 Mg Tab.Chew) 81 mg PO DAILY [facility] Last Admin: 02/20/22 09:12 Dose: 81 mg Documented by: SIMEON Atorvastatin Calcium (Atorvastatin Calcium 80 Mg Tablet) 80 mg PO BEDTIME [facility] Last Admin: 02/20/22 22:01 Dose: 80 mg Documented by: JOSE J Bupropion HCl (Bupropion Hcl Xl 150 Mg Tab.Er.24h) 150 mg PO DAILY [facility] Carvedilol (Carvedilol 6.25 Mg Tablet) 6.25 mg PO BID [facility]; Protocol Last Admin: 02/20/22 22:06 Dose: 6.25 mg Documented by: JOSE J Dextrose (Dextrose 50 % 25 Gm/50 Ml Syringe) 25 gm IVPUSH Q15M PRN; Protocol PRN Reason: per Hypoglycemia Standing Ord. Docusate Sodium (Docusate Sodium 100 Mg Capsule) 100 mg PO DAILY PRN PRN Reason: Constipation Enoxaparin Sodium (Enoxaparin Sodium 30 Mg/0.3 Ml Syringe) 30 mg SUBCUT Q24H [facility] Last Admin: 02/21/22 06:35 Dose: 30 mg Documented by: CASTILSiddharth Ergocalciferol (Ergocalciferol (Vitamin D2) 1,250 Mcg Capsule) 1,250 mcg PO Q7D [facility] Last Admin: 02/20/22 09:45 Dose: 1,250 mcg Documented by: SIMEON Escitalopram Oxalate (Escitalopram Oxalate 20 Mg Tablet) 20 mg PO DAILY [facility] Last Admin: 02/20/22 09:11 Dose: 20 mg Documented by: SIMEON Folic Acid (Folic Acid 1 Mg Tablet) 1 mg PO DAILY [facility] Last Admin: 02/20/22 09:11 Dose: 1 mg Documented by: SIMEON Glucose (Glucose Gel 15 Gm Gel..Gram.) 15 gm PO Q15M PRN; Protocol PRN Reason: per Hypoglycemia Standing Ord. Hydralazine HCl (Hydralazine Hcl 50 Mg Tablet) 50 mg PO TID [facility]; Protocol Last Admin: 02/20/22 22:02 Dose: 50 mg Documented by: JOSE J Azithromycin 500 mg/ Sodium (Chloride) 250 mls @ 125 mls/hr IV Q24H [facility] Last Infusion: 02/20/22 22:12 Dose: 0 mls/hr Documented by: JOSE J Ceftriaxone Sodium 1 gm/ (Sodium Chloride) 50 mls @ 100 mls/hr IV Q24H [facility] Last Infusion: 02/20/22 20:58 Dose: 0 mls/hr Documented by: JOSE J Insulin Glargine (Insulin Glargine,Hum.Rec.Anlog 100 Unit/Ml 10 Ml Vial) 21 unit SUBCUT BEDTIME [facility] Last Admin: 02/20/22 22:03 Dose: 21 unit Documented by: JOSE J Insulin Human Lispro (Insulin Lispro 100 Unit/Ml 3 Ml Vial) 0 unit SUBCUT QIDACHS [facility]; Protocol Last Admin: 02/20/22 22:04 Dose: 6 unit Documented by: JOSE J Melatonin (Melatonin 3 Mg Tablet) 4.5 mg PO BEDTIME [facility] Last Admin: 02/20/22 22:02 Dose: 4.5 mg Documented by: JOSE J Mirabegron (Mirabegron 25 Mg Tab.Er.24h) 25 mg PO DAILY [facility] Last Admin: 02/20/22 09:45 Dose: 25 mg Documented by: SIMEON Ondansetron HCl (Ondansetron Hcl 4 Mg/2 Ml Vial) 4 mg IVPUSH Q8H PRN PRN Reason: Nausea and Vomiting Oseltamivir Phosphate (Oseltamivir Phosphate 30 Mg Capsule) 30 mg PO BEDTIME [facility] Last Admin: 02/20/22 22:16 Dose: 30 mg Documented by: JOSE J Oxycodone HCl (Oxycodone Hcl Immed Release 5 Mg Tablet) 5 mg PO Q4H PRN PRN Reason: pain Sodium Chloride (0.9 % Sodium Chloride Flush 3 Ml Syringe) 3 ml IVFLUSH QSHIFT [facility] Last Admin: 02/20/22 23:12 Dose: 3 ml Documented by: CASTILSiddharth Thiamine HCl (Thiamine Hcl 100 Mg Tablet) 100 mg PO DAILY [facility] Last Admin: 02/20/22 09:11 Dose: 100 mg Documented by: SIMEON Labs CBC & Chem 7: 02/20/22 05:59 02/21/22 06:22 Labs: Laboratory Results - last 24 hr 02/19/22 02/20/22 02/20/22 19:38 05:59 09:49 Anion Gap Creatinine 3.14 H 2.74 H Estim Creat Clear Calc Estimated GFR POC Glucose 168 H Random Glucose Calcium 02/20/22 02/20/22 02/20/22 12:40 17:08 21:11 Anion Gap Creatinine Estim Creat Clear Calc Estimated GFR POC Glucose 173 H 180 H 251 H Random Glucose Calcium 02/21/22 02/21/22 06:22 08:00 Anion Gap 13 Creatinine 2.47 H Estim Creat Clear Calc 25.1 Estimated GFR 26 POC Glucose 129 H Random Glucose 113 Calcium 8.2 L Microbiology Microbiology Results: Microbiology 02/19/22 19:37 Blood Culture - Preliminary Blood - Venous No growth after 24 hours. 02/19/22 20:34 Blood Culture - Preliminary Blood - Venous No growth after 24 hours. Assessment and Plan (1) Pneumonia: Status: Acute (2) Acute kidney injury superimposed on CKD: Status: Acute Plan 71-year-old male with past medical history of hypertension, diabetes, CKD who presents to the hospital with complaints of generalized weakness, shortness of breath, cough found to be positive for influenza a as well as having pneumonia and PARTH Community-acquired pneumonia CURB-65 >2 likely viral with superimposed bacterial infection chest x-ray positive for infiltrate continue Wong/azithro monitor respiratory status Hypokalemia repleted follow BMP Influenza A infection Tamiflu daily, renally dosed PARTH on CKD. Improving prerenal secondary to dehydration follow BMP UTI. Dysuria positive UA Rocephin Follow cx Hypertension stable continue home antihypertensive Diabetes will continue his home insulin add low-dose sliding scale insulin, diabetic diet DVT prophylaxis lovenox need for inaptient: pneumonia -need iv antibiotics Quality Stroke Does the patient have a stroke diagnosis?: No VTE Prior VTE?: No VTE Risk Level:: Medical - moderate - high VTE Device Contraindication: Treatment Not Indicated VTE Drug Contraindication: N/A - Med Ordered
[2022-02-21] MEDS: Aspirin 81 MG TAB.CHEW PO (09:33)
[2022-02-21] MEDS: hydrALAZINE HCl 50 MG TABLET PO ×3 (09:33→20:21)
[2022-02-21] MEDS: Mirabegron 25 MG TAB.ER.24H PO (09:33)
[2022-02-21] MEDS: amLODIPine Besylate 10 MG TABLET PO (09:33)
[2022-02-21] MEDS: Thiamine HCL 100 MG TABLET PO (09:33)
[2022-02-21] MEDS: buPROPion HCl XL 150 MG TAB.ER.24H PO (09:33)
[2022-02-21] MEDS: 0.9 % Sodium Chloride Flush 3 ML SYRINGE IVFLUSH (09:33)
[2022-02-21] MEDS: Escitalopram Oxalate 20 MG TABLET PO (09:33)
[2022-02-21] MEDS: carvediloL 6.25 MG TABLET PO ×2 (09:34→20:21)
[2022-02-21] MEDS: Folic Acid 1 MG TABLET PO (09:34)
--- NOTE | 2022-02-21 10:35 | PC.NURSE ---
Pt o2 dropped to 89. Pt was put on 2L of o2. O2 imporved to 95 after change and breathing treatment.
[2022-02-21 13:28] LABS: Glucose, Whole Blood 186 mg/dL (60-115)
[2022-02-21] MEDS: Insulin Lispro 100 UNIT/ML 3 ML VIAL SUBCUT ×3 (13:37→20:21)
--- NOTE | 2022-02-21 14:35 | PC.NURSE ---
nurse to nurse given to Harleen rn in ed.
--- NOTE | 2022-02-21 17:05 | P.CONNP_ITS ---
History of Present Illness Reason for Consult Consult date: 02/21/22 Reason for consult: PARTH Chief Complaint Chief complaint: CAP, Influenza History of Present Illness Narrative: 71-year-old male with past medical history of CVA, CKD, HTN, HLD, peripheral neuropathy status post BKA of the left, diabetes who presents to the hospital with complaints of generalized weakness, cough and difficulty breathing.? Patient has not been eating or drinking well for due to loss of appetite. He has also had diarrhea for the past 3 days prior to presentation. His serum creatinine was 3.14 at presentation with a baseline around 2. chest x-ray shows left mid lung infiltrate consistent with pneumonia. Nephrology has been consulted to assist in his clinical care during his current hospital stay. Review of Systems Review of Systems Yes all other systems are reviewed and are negative PMFSH Past Medical History Medical History Chronic kidney disease, stage 3 CVA (cerebral vascular accident) Depression Essential hypertension Hyperlipidemia LDL goal <70 Peripheral neuropathy Type 2 diabetes mellitus with chronic kidney disease Type 2 diabetes mellitus with hyperglycemia, with long-term current use of insulin Type 2 diabetes mellitus with polyneuropathy Family History Family History Father Diabetes Mother Diabetes Son Diabetes Surgical History Surgical History History of below-knee amputation of left lower extremity Hx of colonoscopy Social History Social History Patient Tobacco Use Status: Current everyday Tobacco user Cigarettes Per Day: 6 Advance Directives: Yes Advance Directives on File: Yes Advance Directives Date on File: 02/20/22 service: No Current occupational status: retired Meds Allergies Allergy/AdvReac Type Severity Reaction Status Date / Time No Known Allergies Allergy Verified 12/20/21 12:34 [No Known Allergies*] Active Medications: Current Medications Acetaminophen (Acetaminophen 325 Mg Tablet) 650 mg PO Q6H PRN PRN Reason: Pain, Mild (Pain Scale 1-3) Amlodipine Besylate (Amlodipine Besylate 10 Mg Tablet) 10 mg PO DAILY [facility]; Protocol Last Admin: 02/21/22 09:33 Dose: 10 mg Documented by: Aspirin (Aspirin 81 Mg Tab.Chew) 81 mg PO DAILY [facility] Last Admin: 02/21/22 09:33 Dose: 81 mg Documented by: Atorvastatin Calcium (Atorvastatin Calcium 80 Mg Tablet) 80 mg PO BEDTIME [facility] Last Admin: 02/20/22 22:01 Dose: 80 mg Documented by: Bupropion HCl (Bupropion Hcl Xl 150 Mg Tab.Er.24h) 150 mg PO DAILY [facility] Last Admin: 02/21/22 09:33 Dose: 150 mg Documented by: Carvedilol (Carvedilol 6.25 Mg Tablet) 6.25 mg PO BID [facility]; Protocol Last Admin: 02/21/22 09:34 Dose: 6.25 mg Documented by: Dextrose (Dextrose 50 % 25 Gm/50 Ml Syringe) 25 gm IVPUSH Q15M PRN; Protocol PRN Reason: per Hypoglycemia Standing Ord. Docusate Sodium (Docusate Sodium 100 Mg Capsule) 100 mg PO DAILY PRN PRN Reason: Constipation Enoxaparin Sodium (Enoxaparin Sodium 30 Mg/0.3 Ml Syringe) 30 mg SUBCUT Q24H [facility] Last Admin: 02/21/22 06:35 Dose: 30 mg Documented by: Ergocalciferol (Ergocalciferol (Vitamin D2) 1,250 Mcg Capsule) 1,250 mcg PO Q7D [facility] Last Admin: 02/20/22 09:45 Dose: 1,250 mcg Documented by: Escitalopram Oxalate (Escitalopram Oxalate 20 Mg Tablet) 20 mg PO DAILY [facility] Last Admin: 02/21/22 09:33 Dose: 20 mg Documented by: Folic Acid (Folic Acid 1 Mg Tablet) 1 mg PO DAILY [facility] Last Admin: 02/21/22 09:34 Dose: 1 mg Documented by: Glucose (Glucose Gel 15 Gm Gel..Gram.) 15 gm PO Q15M PRN; Protocol PRN Reason: per Hypoglycemia Standing Ord. Hydralazine HCl (Hydralazine Hcl 50 Mg Tablet) 50 mg PO TID [facility]; Protocol Last Admin: 02/21/22 09:33 Dose: 50 mg Documented by: Azithromycin 500 mg/ Sodium (Chloride) 250 mls @ 125 mls/hr IV Q24H [facility] Last Infusion: 02/20/22 22:12 Dose: Infused Documented by: Ceftriaxone Sodium 1 gm/ (Sodium Chloride) 50 mls @ 100 mls/hr IV Q24H [facility] Last Infusion: 02/20/22 20:58 Dose: Infused Documented by: Insulin Glargine (Insulin Glargine,Hum.Rec.Anlog 100 Unit/Ml 10 Ml Vial) 21 unit SUBCUT BEDTIME [facility] Last Admin: 02/20/22 22:03 Dose: 21 unit Documented by: Insulin Human Lispro (Insulin Lispro 100 Unit/Ml 3 Ml Vial) 0 unit SUBCUT QIDACHS [facility]; Protocol Last Admin: 02/21/22 13:37 Dose: 2 unit Documented by: Melatonin (Melatonin 3 Mg Tablet) 4.5 mg PO BEDTIME [facility] Last Admin: 02/20/22 22:02 Dose: 4.5 mg Documented by: Mirabegron (Mirabegron 25 Mg Tab.Er.24h) 25 mg PO DAILY [facility] Last Admin: 02/21/22 09:33 Dose: 25 mg Documented by: Ondansetron HCl (Ondansetron Hcl 4 Mg/2 Ml Vial) 4 mg IVPUSH Q8H PRN PRN Reason: Nausea and Vomiting Oseltamivir Phosphate (Oseltamivir Phosphate 30 Mg Capsule) 30 mg PO BEDTIME [facility] Last Admin: 02/20/22 22:16 Dose: 30 mg Documented by: Oxycodone HCl (Oxycodone Hcl Immed Release 5 Mg Tablet) 5 mg PO Q4H PRN PRN Reason: pain Sodium Chloride (0.9 % Sodium Chloride Flush 3 Ml Syringe) 3 ml IVFLUSH QSHIFT [facility] Last Admin: 02/21/22 16:53 Dose: Not Given Documented by: Thiamine HCl (Thiamine Hcl 100 Mg Tablet) 100 mg PO DAILY [facility] Last Admin: 02/21/22 09:33 Dose: 100 mg Documented by: Home Medications Medication Instructions Recorded Confirmed Last Taken Type amlodipine 10 mg tablet 10 mg PO DAILY 10/04/20 02/20/22 Unknown History aspirin 81 mg chewable tablet 1 tab PO BEDTIME 10/04/20 02/20/22 Unknown History atorvastatin 80 mg tablet 80 mg PO BEDTIME 10/04/20 02/20/22 Unknown History blood sugar diagnostic #10 ea 10/04/20 02/20/22 Unknown History bupropion HCl 100 mg tablet,12 hr 100 mg PO QAM 10/04/20 02/20/22 Unknown History sustained-release carvedilol 6.25 mg tablet 6.25 mg PO BID 10/04/20 02/20/22 Unknown History citalopram 40 mg tablet 40 mg PO DAILY 10/04/20 02/20/22 Unknown History ergocalciferol (vitamin D2) 1,250 1,250 mcg PO QWEEK 10/04/20 02/20/22 Unknown History mcg (50,000 unit) capsule folic acid 1 mg tablet 1 mg PO QAM 10/04/20 02/20/22 Unknown History furosemide 20 mg tablet 20 mg PO QAM 10/04/20 02/20/22 Unknown History hydralazine 50 mg tablet 50 mg PO TIDWM 10/04/20 02/20/22 Unknown History melatonin 5 mg tablet 5 mg PO BEDTIME PRN 10/04/20 02/20/22 Unknown History pen needle, diabetic 32 gauge x #50 ea 10/04/20 02/20/22 Unknown History thiamine HCl (vitamin B1) 100 mg 100 mg PO DAILY 10/04/20 02/20/22 Unknown History tablet lancets #100 ea 11/01/20 02/20/22 Unknown History dulaglutide 0.75 mg/0.5 mL 0.75 mg SUBCUT QWEEK 02/20/22 02/20/22 Unknown History subcutaneous pen injector (Trulicity) insulin degludec 200 unit/mL (3 30 unit SUBCUT DAILY 02/20/22 02/20/22 Unknown History mL) subcutaneous pen (Tresiba FlexTouch U-200 insulin) insulin lispro 100 unit/mL 6 unit SUBCUT DAILY@1630 02/20/22 02/20/22 Unknown History subcutaneous pen (Humalog KwikPen (U-100) Insulin) lisinopril 5 mg tablet 1 tab PO DAILY@1700 02/20/22 02/20/22 Unknown History Physical Exam Vital Signs: Last Vital Signs Temp 98.1 F 02/21/22 08:03 Pulse 82 02/21/22 08:03 Resp 30 H 02/21/22 08:03 BP 159/61 H 02/21/22 08:03 Pulse Ox 96 02/21/22 08:03 Oxygen Flow Rate 2 02/19/22 21:41 BMI result Body Mass Index 22.0 Const General: no acute distress Neck Neck: Yes supple Resp Auscultation: diminished lung sounds Cardio Rate: regular rate GI Palpation (GI): Soft to palpation Results Lab Results Result Diagrams: 02/20/22 05:59 02/21/22 06:22 Lab results: Chemistry 02/19/22 02/20/22 02/21/22 19:38 05:59 06:22 Sodium 130 L 134 L 137 Potassium 3.1 L 3.0 L 3.3 Carbon Dioxide 21 L 19 L 19 L BUN 47 H 45 H 38 H Creatinine 3.14 H 2.74 H 2.47 H Calcium 8.1 L 7.8 L 8.2 L Hematology 02/19/22 02/20/22 19:38 05:59 WBC 25.5 H 22.9 H Hgb 11.2 L 10.1 L Plt Count 237 244 Urinalysis 02/20/22 04:17 Urine Color YELLOW Urine Appearance HAZY Urine pH 5.5 Ur Specific [place] 1.025 Urine Protein 2+ H Urine Glucose (UA) NEG Urine Ketones NEG Urine Blood TRACE Urine Nitrite NEG Ur Leukocyte Esterase 1+ H Urine RBC 0-2 Urine WBC 0-2 Ur Squamous Epith Cells 3+ Hyaline Casts 0-2 Assessment and Plan (1) Acute kidney injury superimposed on CKD: Status: Acute Plan PARTH due to compromise in renal perfusion with resultant tubular injury Chronic Kidney Disease 4 at baseline; Urine output good DDx nataliia infectious GN - unlikely; Renal functions improving No ACEI/ARB; Could D/C fluids if eating and drinking well All medications should be dosed for GFR; Labs AM Procedures Date of Service Date of Service: 02/21/22
[2022-02-21 17:12] VITALS: BP 161/63; PULSE 72; RESP 28; TEMP 36.8; O2SAT 99
[2022-02-21 17:20] LABS: Glucose, Whole Blood 224 mg/dL (60-115)
[2022-02-21 19:48] VITALS: BP 176/80; PULSE 75; RESP 18; TEMP 37.1; O2SAT 94
[2022-02-21 20:09] LABS: Glucose, Whole Blood 204 mg/dL (60-115)
[2022-02-21] MEDS: cefTRIAXone sodium 1 GM in 0.9 % Sodium Chloride 50 ML IV (20:16)
[2022-02-21] MEDS: Melatonin 3 MG TABLET 4.5 MG PO (20:21)
[2022-02-21] MEDS: Atorvastatin Calcium 80 MG TABLET PO (20:21)
[2022-02-21] MEDS: Insulin Glargine,Hum.rec.anlog 100 UNIT/ML 10 ML VIAL 21 UNIT SUBCUT (20:22)
[2022-02-21] MEDS: Azithromycin 500 MG in 0.9 % Sodium Chloride 250 ML 125 MG IV (20:44)
[2022-02-21] MEDS: Oseltamivir Phosphate 30 MG CAPSULE PO (21:16)
[2022-02-21 23:14] VITALS: BP 171/74; PULSE 73; RESP 22; TEMP 36.9; O2SAT 96
[2022-02-22] MEDS: 0.9 % Sodium Chloride Flush 3 ML SYRINGE IVFLUSH ×2 (00:45→09:11)
[2022-02-22 03:33] VITALS: BP 177/60; PULSE 73; RESP 19; TEMP 37.1; O2SAT 99
[2022-02-22] MEDS: Enoxaparin Sodium 30 MG/0.3 ML SYRINGE SUBCUT (06:18)
[2022-02-22 07:05] LABS: Anion Gap 12 (12-20); Blood Urea Nitrogen 30 mg/dL (9-16); Calcium 7.9 mg/dL (8.4-10.2); Carbon Dioxide 22 mmol/L (22-29); Chloride 109 mmol/L (96-108); Creatinine Clr Calc Pharmacy 28.2; Estimated Glomerular Filt Rate 30; Glucose Random 82 mg/dL (60-115); Potassium 3.5 mmol/L (3.3-5.1); Sodium 139 mmol/L (135-145)
[2022-02-22 07:37] VITALS: BP 158/73; PULSE 77; RESP 18; TEMP 36.9; O2SAT 98
[2022-02-22 07:53] LABS: Hematocrit 32.2 % (42.0-52.0); Hemoglobin 10.5 g/dl (14.0-18.0); Mean Corpuscular HGB Conc 32.6 g/dl (31.0-36.0); Mean Corpuscular Hemoglobin 25.9 pg (27.0-33.0); Mean Corpuscular Volume 79.5 fL (80.0-98.0); Mean Platelet Volume 11.2 fL (9.4-12.4); Platelet Count 381 X10*3/uL (160-400); Red Blood Count 4.05 X10*6/uL (4.60-5.80); Red Cell Distribution Width 14.6 % (11.0-16.0); White Blood Count 13.4 X10*3/uL (4.8-10.8)
[2022-02-22 07:55] LABS: Glucose, Whole Blood 80 mg/dL (60-115)
[2022-02-22] MEDS: hydrALAZINE HCl 50 MG TABLET PO (09:10)
[2022-02-22] MEDS: buPROPion HCl XL 150 MG TAB.ER.24H PO (09:10)
[2022-02-22] MEDS: carvediloL 6.25 MG TABLET PO (09:10)
[2022-02-22] MEDS: Mirabegron 25 MG TAB.ER.24H PO (09:10)
[2022-02-22] MEDS: Aspirin 81 MG TAB.CHEW PO (09:10)
[2022-02-22] MEDS: Thiamine HCL 100 MG TABLET PO (09:10)
[2022-02-22] MEDS: Escitalopram Oxalate 20 MG TABLET PO (09:10)
[2022-02-22] MEDS: Folic Acid 1 MG TABLET PO (09:10)
[2022-02-22] MEDS: amLODIPine Besylate 10 MG TABLET PO (09:10)
[2022-02-22 09:15] VITALS: O2SAT 94
[2022-02-22 10:56] VITALS: BP 165/69; PULSE 74; RESP 18; TEMP 37.1; O2SAT 94
[2022-02-22 10:59] LABS: Glucose, Whole Blood 216 mg/dL (60-115)
--- NOTE | 2022-02-22 11:26 | P.PNNP_ITS ---
Subjective Subjective Date of Service: 02/22/22 Interval history: Events noted. All recent data reviewed; D/W Med Attending Physical Exam 2 Vital Signs: Vital Signs: Last Vital Signs Temp 98.7 F 02/22/22 10:56 Pulse 74 02/22/22 10:56 Resp 18 02/22/22 10:56 BP 165/69 H 02/22/22 10:56 Pulse Ox 94 02/22/22 10:56 Oxygen Flow Rate 2 02/19/22 21:41 BMI result Body Mass Index 22.0 Const: General: no acute distress Orientation/consciousness: patient oriented x3 Eyes: EOM: EOMs intact bilaterally Neck: Carotids: normal carotid upstroke Resp: Auscultation: diminished lung sounds Cardio: Rate: regular rate GI: Palpation (GI): Soft to palpation Neuro: General: patient oriented x3 Objective Data Labs CBC & Chem 7: 02/22/22 06:29 02/22/22 06:29 Labs: Laboratory Results - last 24 hr 02/21/22 02/21/22 02/21/22 13:22 17:15 20:05 WBC RBC Hgb Hct MCV MCH MCHC RDW Plt Count MPV Absolute Nucleated RBC Nucleated RBC % (auto) Sodium Potassium Chloride Carbon Dioxide Anion Gap BUN Creatinine Estim Creat Clear Calc Estimated GFR POC Glucose 186 H 224 H 204 H Random Glucose Calcium 02/22/22 02/22/22 02/22/22 06:29 06:29 07:39 WBC 13.4 H RBC 4.05 L Hgb 10.5 L Hct 32.2 L MCV 79.5 L MCH 25.9 L MCHC 32.6 RDW 14.6 Plt Count 381 D MPV 11.2 Absolute Nucleated RBC 0.000 Nucleated RBC % (auto) 0.0 Sodium 139 Potassium 3.5 Chloride 109 H Carbon Dioxide 22 Anion Gap 12 BUN 30 H Creatinine 2.20 H Estim Creat Clear Calc 28.2 Estimated GFR 30 POC Glucose 80 Random Glucose 82 Calcium 7.9 L 02/22/22 10:55 WBC RBC Hgb Hct MCV MCH MCHC RDW Plt Count MPV Absolute Nucleated RBC Nucleated RBC % (auto) Sodium Potassium Chloride Carbon Dioxide Anion Gap BUN Creatinine Estim Creat Clear Calc Estimated GFR POC Glucose 216 H Random Glucose Calcium Microbiology Microbiology Results: Microbiology 02/19/22 19:37 Blood - Venous Blood Culture - Preliminary No growth after 48 hours. 02/19/22 20:34 Blood - Venous Blood Culture - Preliminary No growth after 48 hours. 02/20/22 Unknown Urine clean catch - Urine alonzo top Urine Culture - Final Procedures Date of Service Date of Service: 02/22/22 Assessment & Plan Assessment and plan (1) Acute kidney injury superimposed on CKD: Status: Acute Assessment and Plan: PARTH due to compromise in renal perfusion with resultant tubular injury Chronic Kidney Disease 4 at baseline; Urine output good Renal functions improving; Could start lasix 20 mg every other day Could start lisinopril 2.5 mg daily Shall arrange close F/U in office if D/Bret Time Spent With Patient Time: Total time spent is greater than 50% in coordination of care (as documented) at patient's floor/unit and/or counseling patient: Progress Note: Quality Stroke Does the patient have a stroke diagnosis?: No
[2022-02-22] MEDS: Insulin Lispro 100 UNIT/ML 3 ML VIAL SUBCUT (11:27)
--- NOTE | 2022-02-22 11:38 | P.DS_ITS ---
DS: Providers Provider Date of Service: 02/22/22 Date of admission: 02/20/22 01:11 Primary care physician: Harika Medrano MD DS: Diagnosis Discharge Diagnosis (1) Acute kidney injury superimposed on CKD: Status: Acute DS: Summary Hospital Course Hospital Course: 71-year-old male with past medical history of CVA, CKD, HTN, HLD, peripheral neuropathy status post BKA of the left, diabetes who presents to the hospital with complaints of generalized weakness, cough, trouble breathing.? Patient reports that his symptoms started about 5 days ago, associated with a nonproductive cough, generalized weakness, and shortness of breath.? Patient denies any? sputum production but, reports fever of 100.6 at home, low appetite, has not been eating ? Or drinking well for the past 4 days due to loss of appetite. ? he is complaining of neck, chest, and generalized pain, he has also had diarrhea for the past 3 days, about 2-3 episodes daily, nonbloody, he is complaining of urinary frequency that is chronic but also dysuria for the past few days. ? Patient otherwise denies any headache, change in vision, no numbness weakness or tingling, no abdominal pain nausea or vomiting. ?on arrival to the ED patient noted to have respiratory rate of 25, blood pressure stable, satting 90% on room air, currently on 2 L of oxygen satting 100% ? Labs are significant for WBC count of 25, hemoglobin of 11.2, hematocrit of 34.3 which is around his baseline, sodium of 130, potassium 3.1, creatinine of 3.14 with a baseline around 2, AST of 54, albumin of 3.2, UA positive for leukocyte Estrace ? Interest WBC, COVID-19 negative, influenza A positive positive ?chest x-ray shows left mid lung infiltrate consistent with pneumonia ?head and cervical spine CT showed no acute intracranial pathology? or cervical spine fracture or trauma ?given PARTH,? pneumonia with CURB- 65>2? patient requires a medically necessary admission for management and? close monitoring? as he would do poorly if treated outpatient. Hospital course : Patient was admitted for PARTH, pneumonia, influenza: Started on IV antibiotics, IV fluid, Tamiflu, also his lisinopril and Lasix were placed on hold due to worsening renal function. Patient PARTH seems to be improved with hydration and holding above medications- currently renal function at baseline so adjusted lisinopril and Lasix as above. Patient also has flu please complete the course of Tamiflu, also complete the course of p.o. antibiotic for pneumonia. Please repeat chest imaging study in 3-4 weeks to see resolution of pneumonia. Follow-up BMP outpatient needs and further adjustment out patiently Above management discussed with the patient in detail length with the help of consumer studies professor- he understand and in agreement with the above plan, time spent 50 minutes and 50% time spent on counseling. Significant findings: As above. Procedures performed: None. Treatment and response: As above. Complications: None. Time Spent with Patient Time attestation: Total time spent providing and/or coordinating discharge services: Discharge coordination time: Greater than 30 minutes Quality: Safe Use of Opioids Does Pt have an Active Cancer Diagnosis on the Problem List?: No Quality: Stroke Does the patient have a stroke diagnosis?: No Physical Exam Vital Signs: Vital Signs: Last Vital Signs Temp 98.7 F 02/22/22 10:56 Pulse 74 02/22/22 10:56 Resp 18 02/22/22 10:56 BP 165/69 H 02/22/22 10:56 Pulse Ox 94 02/22/22 10:56 Oxygen Flow Rate 2 02/19/22 21:41 BMI result Body Mass Index 22.0 Appearance: Alert.? Oriented X3.? not in distress.? cvs: rrr, [id number] , no murmur res: dimished breath sounds at bases , no rales or wheezing abd: no rebound or guarding ,nt, bs present. ext pulses present , no cyanosis . neuro: axo3 , nonfocal. DS: Data Data Completed and Pending Labs on day of discharge: Laboratory Results - last 24 hr 02/21/22 02/21/22 02/21/22 13:22 17:15 20:05 WBC RBC Hgb Hct MCV MCH MCHC RDW Plt Count MPV Absolute Nucleated RBC Nucleated RBC % (auto) Sodium Potassium Chloride Carbon Dioxide Anion Gap BUN Creatinine Estim Creat Clear Calc Estimated GFR POC Glucose 186 H 224 H 204 H Random Glucose Calcium 02/22/22 02/22/22 02/22/22 06:29 06:29 07:39 WBC 13.4 H RBC 4.05 L Hgb 10.5 L Hct 32.2 L MCV 79.5 L MCH 25.9 L MCHC 32.6 RDW 14.6 Plt Count 381 D MPV 11.2 Absolute Nucleated RBC 0.000 Nucleated RBC % (auto) 0.0 Sodium 139 Potassium 3.5 Chloride 109 H Carbon Dioxide 22 Anion Gap 12 BUN 30 H Creatinine 2.20 H Estim Creat Clear Calc 28.2 Estimated GFR 30 POC Glucose 80 Random Glucose 82 Calcium 7.9 L 02/22/22 10:55 WBC RBC Hgb Hct MCV MCH MCHC RDW Plt Count MPV Absolute Nucleated RBC Nucleated RBC % (auto) Sodium Potassium Chloride Carbon Dioxide Anion Gap BUN Creatinine Estim Creat Clear Calc Estimated GFR POC Glucose 216 H Random Glucose Calcium Preliminary micro results at discharge 02/19/22 19:37 Blood Culture - Preliminary Blood - Venous No growth after 48 hours. 02/19/22 20:34 Blood Culture - Preliminary Blood - Venous No growth after 48 hours. Additional Comments Additional comments: CT/CT head/brain wo con IMPRESSION: 1. No acute intracranial pathology. 2. No CT evidence of acute cervical spine fracture or traumatic subluxation. ?XR/XR chest 1V IMPRESSION: New left midlung infiltrate consistent with pneumonia. Discharge Plan Discharge Patient Disposition: Home, Self-Care Discharge Diagnosis: parth , flu , cap Referrals: Harika Medrano MD [Primary Care Provider] - 1 Week Discharge Medications: New oseltamivir 30 mg Capsule 30 mg PO BEDTIME Qty: 2 0RF cefuroxime axetil 250 mg tablet 250 mg PO Q12H Qty: 14 0RF azithromycin 500 mg tablet 500 mg PO DAILY 5 Days Qty: 5 0RF Continued oxycodone-acetaminophen [Percocet] 5-325 mg tablet 1 tab PO Q4-6H PRN (Reason: pain) Qty: 10 0RF insulin lispro [Humalog KwikPen Insulin] 100 unit/mL insulin pen 6 unit subcut DAILY@1630 0RF Tresiba FlexTouch U-200 200 unit/mL (3 mL) insulin pen 30 unit subcut DAILY 0RF Trulicity 0.75 mg/0.5 mL pen injector 0.75 mg subcut QWEEK 0RF (DME) lancets Misc See Rx Instructions ea .ROUTE .MEDSUPPLY Qty: 100 0RF Rx Instructions: As directed (DME) pen needle, diabetic 32 gauge x 5/32 needle See Rx Instructions ea .ROUTE .MEDSUPPLY Qty: 50 0RF Rx Instructions: As directed ergocalciferol (vitamin D2) 1,250 mcg (50,000 unit) capsule 1,250 mcg PO QWEEK 0RF hydralazine 50 mg tablet 50 mg PO TIDWM 0RF folic acid 1 mg tablet 1 mg PO QAM 0RF aspirin 81 mg tablet,chewable 1 tab PO BEDTIME 0RF citalopram 40 mg tablet 40 mg PO DAILY 0RF (DME) blood sugar diagnostic Strip See Rx Instructions ea Not Applicable .MEDSUPPLY Qty: 10 0RF Rx Instructions: As directed amlodipine 10 mg tablet 10 mg PO DAILY 0RF melatonin 5 mg tablet 5 mg PO BEDTIME PRN (Reason: insomnia) 0RF atorvastatin 80 mg tablet 80 mg PO BEDTIME 0RF bupropion HCl 100 mg tablet sustained-release 12 hr 100 mg PO QAM 0RF thiamine HCl (vitamin B1) 100 mg tablet 100 mg PO DAILY 0RF carvedilol 6.25 mg tablet 6.25 mg PO BID 0RF Myrbetriq 25 mg tablet extended release 24 hr 25 mg PO QAM 90 Days Qty: 90 1RF tamsulosin 0.4 mg capsule 0.4 mg PO BEDTIME 90 Days Qty: 90 1RF Changed lisinopril 5 mg tablet 0.5 tab PO DAILY@1700 Qty: 15 0RF furosemide 20 mg tablet 20 mg PO Q2D Qty: 15 0RF Discharge Orders: Discharge Order (Routine); Ordered 02/22/22 Ordered By: Ashley Torres Diet: advance to usual diet Activity on Discharge: As tolerated Stand Alone Forms: Patient Portal Discharge page Other Ambulatory Orders: Basic Metabolic Panel (Routine) Timeframe: 1 Week Facility: [facility] - Location: Laboratory Ordered By: Ashley Torres Care Plan Goals: Patient was admitted for PARTH, pneumonia, influenza: Started on IV antibiotics, IV fluid, Tamiflu, also his lisinopril and Lasix were placed on hold due to worsening renal function. Patient PARTH seems to be improved with hydration and holding above medications- currently renal function at baseline so adjusted lisinopril and Lasix as above. Follow-up BMP outpatient needs and further adjustment out patiently. Health Concerns: As above. Plan of Treatment: As above. Assessment: As above.
--- NOTE | 2022-02-22 13:02 | MHC.CM.PN ---
PT WILL DC HOME TODAY WITH RESUMPTION OF HIS PROGRAM SUPPORT CLERK SERVICES PTS DAUGHTER IS AT BEDSIDE AND INDICATES SHE WILL TRANSPORT PT
== END 2022-02-22 14:35 | disposition home or self-care (01) | DRG 194 ==
LOC: HO.ED 22:11 → HO.EDOVER 02-20 01:23 → HO.IMC 02-21 18:05
PROVIDERS: Nurse Practitioner Acute Care; Admitting Provider Internal Medicine; Emergency Provider Internal Medicine; PCP Family Medicine; Visit Provider Internal Medicine
DX: J10.00 Influenza due to other identified influenza virus with unspecified type of pneumonia (principal); N17.9 Acute kidney failure, unspecified; N39.0 Urinary tract infection, site not specified; Z86.73 Personal history of transient ischemic attack (TIA), and cerebral infarction without residual deficits; Z89.512 Acquired absence of left leg below knee; F17.210 Nicotine dependence, cigarettes, uncomplicated; Z71.6 Tobacco abuse counseling; E11.42 Type 2 diabetes mellitus with diabetic polyneuropathy; I12.9 Hypertensive chronic kidney disease with stage 1 through stage 4 chronic kidney disease, or unspecified chronic kidney disease; E87.6 Hypokalemia; E11.22 Type 2 diabetes mellitus with diabetic chronic kidney disease; F03.90 Unspecified dementia, unspecified severity, without behavioral disturbance, psychotic disturbance, mood disturbance, and anxiety; E86.0 Dehydration; Z20.822 Contact with and (suspected) exposure to COVID-19; N18.30 Chronic kidney disease, stage 3 unspecified; Z99.3 Dependence on wheelchair; Z79.4 Long term (current) use of insulin; Z79.82 Long term (current) use of aspirin; Z79.899 Other long term (current) drug therapy
CPT/HCPCS: 36415; 70450; 71045; 72125; 80048; 80053; 81001; 82947; 83605; 83690; 83735; 85025; 85027; 87040; 87086; 87502; 87635; 94640; 96361; 96374; 96375; 99285; J0456; J0696; J1650

== ENCOUNTER → 2022-02-27 11:59 | Outpatient (BNVA) | payer MEDICARE, MEDICAID, SELFPAY | PROVIDERS: PCP Family Medicine; Visit Provider Urology | DX: Z13.89 Encounter for screening for other disorder (principal) ==

== ENCOUNTER 2023-10-17 11:29 | Emergency (ER) | payer MEDICARE, MEDICAID, SELFPAY ==
--- NOTE | ~2023-10-17 | CT_ITS ---
EXAMINATION: CT brain, CT cervical spine, CT chest, abdomen pelvis without contrast. CLINICAL INDICATIONS: Fall. TECHNIQUE: 5 mm thin axial and reformatted 2 mm thin sagittal and coronal images of brain were obtained. Axial 3 mm thin and reformatted 2 mm thin sagittal and coronal images of cervical spine were obtained. Lastly 5 mm thin axial and reformatted 3 mm thin sagittal and coronal images of chest, abdomen and pelvis were obtained without contrast. DLP [id number]. This CT examination was performed using dose optimization technique as appropriate, variously including the following: Automated exposure control Adjustment of MA and/or KV according to patient size(this includes techniques or standardized protocols for targeted exams where dose is matched to indication/reason for exam; extremities or head. Use of iterative reconstruction techniques. FINDINGS: BRAIN: There is no acute intra-axial, extra-axial bleed, masses or midline shift there is no acute infarction in evolution. There is lacunar infarction in right internal capsule and basal ganglia. The lateral ventricles are symmetrical in size and configuration but enlarged. There is diffuse periventricular hypodensity in both cerebral hemispheres without mass effect. Bone windows reveal no calvarial abnormality. There is no scalp soft tissue abnormality. Bilateral paranasal sinuses and mastoid air cells are well-aerated with air-fluid level in the right maxillary sinus. CERVICAL SPINE: On sagittal reconstructed images there is maintained cervical lordosis. The vertebral heights, alignment and disc heights are normal. The craniovertebral junction and C1-C2 alignment is normal. There is no visible acute fracture, dislocation or subluxation seen. The prevertebral and paravertebral soft tissues are normal. Central trachea and the bronchi are widely patent. Lung apices are clear. There is mild bilateral apical pleural thickening. CHEST: LUNGS: The lungs are well-expanded and clear of contusion or consolidation. There is a 2 mm linear nodule right upper lobe axial image 18/25, 2 mm nodule left lower lobe superior segment axial image 29/25. There is dependent bibasilar atelectasis. Mediastinum: Heart size and the great vessels are normal caliber. Central trachea and bronchi are widely patent. The thyroid lobes are symmetric and normal. The aorta is atherosclerotic without dilation. There is significant coronary artery calcification present. The heart size is normal. No pericardial effusion seen. There is a small hiatal hernia. There are benign precarinal tracheal lymph nodes. Pleura: There is no pleural effusion or thickening. Axilla: The axillae and the chest wall appears unremarkable. Osseous structures: No aggressive lytic or sclerotic process seen. There is moderate ventral spondylosis dorsal spine. Abdomen and pelvis: Liver, ducts and gallbladder: The liver is normal size, contour and density. No focal lesion or intrahepatic ductal dilatation seen. There is a punctate radiopaque density in the dependent segment of the gallbladder likely a small gallstone. No wall thickening seen. Spleen: Unremarkable. Pancreas: Unremarkable. Adrenal glands: Unremarkable. Kidneys and ureter: Both kidneys are normal size, shape and position. There are vascular calcifications in the renal hilum. No evidence of hydronephrosis. Abdominal wall: Unremarkable. GI tract: There is scattered stool and gas seen in colon without distention. No free air, free fluid. No evidence of retroperitoneal hematoma or mass. Pelvis: The prostate gland is mildly enlarged. The bladder is nondistended with nonspecific mild anterior and superior bladder wall thickening measuring 5 mm. No abnormal pelvic lymph nodes. Osseous structures: No aggressive lytic or sclerotic process seen. CT/CT abdomen pelvis wo IV con IMPRESSION: No acute intracranial process seen No evidence of fracture, dislocation or subluxation in cervical spine. Small insignificant pulmonary nodules, incidental finding. No lung contusion, hematoma or pneumothorax. No osseous bony abnormality. Unremarkable CT abdomen pelvis. Especially no retroperitoneal bleed, free air. Nonspecific mild anterior and superior bladder wall thickening.
--- NOTE | ~2023-10-17 | XR_ITS ---
EXAMINATION: XR CHEST 2 VIEW CLINICAL INFORMATION: Fall COMPARISON: 02/19/2022 TECHNIQUE: PA and lateral views of the chest obtained. FINDINGS: The lungs are clear. Previously seen left lung pneumonia has resolved. There are no pleural effusions. The cardiomediastinal silhouette is normal. XR/XR chest 2V IMPRESSION: No acute cardiopulmonary disease.
[2023-10-17 11:49] VITALS: BP 154/54; PULSE 69; RESP 18; TEMP 36.3; O2SAT 100; BMI 31.2
--- NOTE | 2023-10-17 13:27 | ED_ITS ---
HPI - Fall General Chief Complaint: Fall Stated Complaint: fell l rib inj Time Seen by Provider: 10/17/23 12:30 Source: patient and RN notes reviewed Mode of arrival: ambulatory Limitations: no limitations History of Present Illness HPI Narrative: This is a 72-year-old male, with a history of CVA, CKD stage 3 , HTN, HLD, peripheral neuropathy status post BKA of the left, diabetes, presenting to the emergency department for evaluation of left rib pain. Patient states that he had a ?mechanical fall vs syncopal episode last night, where he was trying to reach for a bar in the bathroom while trying to stand up from the toilet and did not have enough strength and fell. He admits to having some dizziness during this. He denies head strike. No loss of consciousness. The fall was not witnessed however patient's daughter was outside of the restroom and can confirm that there was no loss of consciousness during this episode. No anticoagulation. No shortness of breath or chest pain. He is only complaining of left-sided rib pain. He denies any headaches, dizziness, weakness, chest pain, shortness of breath, abdominal pain, nausea, vomiting or diarrhea. No other complaints or concerns at this time. MD complaint: fall Onset (ago): day(s) Fall from: standing Fall witnessed: no Place fall occurred: home Loss of consciousness: none Prolonged down time: no Symptoms prior to fall: dizziness Location of injury: chest Quality: stabbing Related Data Home Medications Medication Instructions Recorded Confirmed amlodipine 10 mg tablet 10 mg PO DAILY 10/04/20 02/20/22 aspirin 81 mg chewable tablet 1 tab PO BEDTIME 10/04/20 02/20/22 atorvastatin 80 mg tablet 80 mg PO BEDTIME 10/04/20 02/20/22 blood sugar diagnostic #10 ea 10/04/20 02/20/22 bupropion HCl 100 mg tablet,12 hr 100 mg PO QAM 10/04/20 02/20/22 sustained-release carvedilol 6.25 mg tablet 6.25 mg PO BID 10/04/20 02/20/22 citalopram 40 mg tablet 40 mg PO DAILY 10/04/20 02/20/22 ergocalciferol (vitamin D2) 1,250 1,250 mcg PO QWEEK 10/04/20 02/20/22 mcg (50,000 unit) capsule folic acid 1 mg tablet 1 mg PO QAM 10/04/20 02/20/22 hydralazine 50 mg tablet 50 mg PO TIDWM 10/04/20 02/20/22 melatonin 5 mg tablet 5 mg PO BEDTIME PRN insomnia 10/04/20 02/20/22 pen needle, diabetic 32 gauge x #50 ea 10/04/20 02/20/22 thiamine HCl (vitamin B1) 100 mg 100 mg PO DAILY 10/04/20 02/20/22 tablet lancets #100 ea 11/01/20 02/20/22 dulaglutide 0.75 mg/0.5 mL 0.75 mg subcut QWEEK 02/20/22 02/20/22 subcutaneous pen injector (Trulicity) insulin degludec 200 unit/mL (3 30 unit subcut DAILY 02/20/22 02/20/22 mL) subcutaneous pen (Tresiba FlexTouch U-200 insulin) insulin lispro 100 unit/mL 6 unit subcut DAILY@1630 02/20/22 02/20/22 subcutaneous pen (Humalog KwikPen (U-100) Insulin) Previous Rx's Medication Instructions Recorded oxycodone-acetaminophen 5 mg-325 1 tab PO Q4-6H PRN pain #10 tabs 01/23/21 mg tablet (Percocet) azithromycin 500 mg tablet 500 mg PO DAILY 5 days #5 tabs 02/22/22 cefuroxime axetil 250 mg tablet 250 mg PO Q12H #14 tabs 02/22/22 furosemide 20 mg tablet 20 mg PO Q2D #15 tabs 02/22/22 lisinopril 5 mg tablet 0.5 tab PO DAILY@1700 #15 tabs 02/22/22 oseltamivir 30 mg capsule 30 mg PO BEDTIME #2 caps 02/22/22 mirabegron 25 mg tablet,extended 25 mg PO QAM 90 days #90 tabs 10/08/22 release 24 hr (Myrbetriq) tamsulosin 0.4 mg capsule 0.4 mg PO BEDTIME 90 days #90 caps 10/08/22 Allergies Allergy/AdvReac Type Severity Reaction Status Date / Time No Known Allergies Allergy Verified 10/17/23 11:48 [No Known Allergies*] Review of Systems 2 Review of Systems: Yes all other systems are reviewed and are negative Constitutional: Constitutional: Reports as per [facility] Past Medical History Attestation statement: The following information was validated with the patient. Medical History CVA (cerebral vascular accident) Type 2 diabetes mellitus with polyneuropathy Peripheral neuropathy Depression Chronic kidney disease, stage 3 Type 2 diabetes mellitus with chronic kidney disease Type 2 diabetes mellitus with hyperglycemia, with long-term current use of insulin Essential hypertension Hyperlipidemia LDL goal <70 Surgical History History of below-knee amputation of left lower extremity Hx of colonoscopy Family History Family History Father Diabetes Mother Diabetes Son Diabetes Social History Social History Household Members: Family Housing: Apartment Do you presently have visiting nurse or other home services: Yes Patient Tobacco Use Status: Current everyday Tobacco user Tobacco use type: Cigarette Cigarette Packs Per Day: 0.5 Cigarettes Per Day: 10.0 Advance Directives: Yes Advance Directives on File: Yes Advance Directives Date on File: 02/20/22 service: No Current occupational status: retired Physical Exam 2 Vital Signs: Vital Signs: Last Vital Signs Temp 97.4 F 10/17/23 11:49 Pulse 69 10/17/23 11:49 Resp 18 10/17/23 11:49 BP 154/54 H 10/17/23 11:49 Pulse Ox 100 10/17/23 11:49 O2 Del Method Room Air 10/17/23 11:49 BMI result Body Mass Index 31.2 Const: General: cooperative, comfortable and no acute distress O rientation/consciousness: patient oriented x3 Limitations: no limitations HEENT: Head: Yes normal to inspection, Yes normocephalic, Yes atraumatic, No Lucero's sign, No contusion, No palpable skull fracture and No raccoon eyes E ars: hearing grossly normal bilaterally and TM's normal bilaterally (No hemotympanum) General nose exam: Normal external nose present Face and sinus: Yes normal facial exam Mouth: Normal oral and palatal mucosa present, oropharynx normal and moist mucous membranes Throat: Yes posterior oropharynx normal Eyes: General: appearance normal, both eyes and all related structures E yelids: Yes eyelids normal Conjunctivae: conjunctivae normal Sclerae: s clerae normal Pupils: Equal, round and reactive pupils present EOM: EOMs intact bilaterally Neck: Other: No cervical midline spine tenderness to palpation, full range of motion of the neck without difficulty. Neck: Yes normal visual inspection, Yes full ROM and Yes no lymphadenopathy Lymphatic: no lymphadenopathy noted Chest: Other: Tenderness to palpation along the left anterior chest wall, no step-off or crepitus noted, no bruising or edema Chest palpation & inspection: normal inspection of the chest Resp: Effort & Inspection: normal respiratory effort and able to speak in complete sentences Auscultation: clear to auscultation bilaterally, no crackles, no rales, no rhonchi and no wheezes Cardio: Rate: regular rate Rhythm: regular rhythm Heart sounds: S1 normal heart sound present and S2 normal heart sound present GI: Inspection: Yes normal to inspection Back/Spine/Pelvis: Other: Tenderness palpation in the left upper quadrant, no ecchymosis noted, abdomen is soft, nondistended Skin: General skin exam: no rashes or lesions noted Trauma: no lacerations or abrasions Wounds: no wounds Neuro: General: patient oriented x3 and moves all extremities Cranial nerves: Yes Equal, round and reactive pupils present Extrem: General: Yes normal to inspection Right upper extremity: normal to inspection Left upper extremity: normal to inspection Right lower extremity: normal to inspection Left lower extremity: normal to inspection Course Reevaluation(s) Reevaluation #1: CT head, CT neck, chest CT, and abdominal CT was obtained revealing no acute abnormalities. On the head CT, within the findings, there is a lacunar infarction in the right internal capsule and basal ganglia. Discussed this with Dr. Arizmendi, radiologist to states that this is likely an old infarction. I discussed this with my attending physician Dr. Martinez. Patient has a history of chronic kidney disease, BUN and creatinine around his baseline. Discussed workup with family and patient, educated the importance of incentive spirometry to prevent pneumonia. Advised to return if any new or worsening symptoms occur, patient understands and agrees with plan. Patient stable for discharge. Medical Decision Making Medical Decision Making MDM Narrative: This is a 72-year-old male presenting to the emergency department for evaluation of ? Syncopal episode which occurred last night. Patient was getting to stand up after using the restroom when he felt dizzy and fell to the ground. He did not hit his head, he hit the left side of his ribs. No loss of consciousness. This was witnessed by family bystander. On arrival, patient mildly hypertensive at 1:54 a.m. over per 44, all other vital signs within normal limits. Patient is nontoxic appearing. On examination, patient has exquisite tenderness in the left anterior chest wall with no bony step-off or deformity. Patient also endorsing left upper abdominal pain, abdomen is otherwise soft nontender. Patient is not having any chest pain or shortness of breath, no weakness. He is neurologically intact. Given dizziness prior to the fall, will obtain cardiac workup, will also obtain head CT, cervical spine CT, chest CT, and abdominal CT. A chest x-ray was ordered out triage, which was unremarkable. Differential Diagnosis Differential Diagnoses: The differential diagnosis associated with the presentation includes Rib fracture, pneumothorax, ICH, cervical spine fracture, splenic laceration, Admission/Observation Consideration of admission/observation: Escalation of care including admission/observation considered Escalation of care including admission/observation was considered given questionable syncopal episode. Lab Data MDM Lab Attestation statement: I reviewed the patient's lab results. Mild leukocytosis at 11.2, H&H 11.4/37%, higher than his typical baseline. Creatinine 2.4, BUN 38 which is around his baseline. Random glucose 328, alk- phos mildly elevated, all other liver enzymes within normal limits. Troponin x2 negative 10/17/23 14:10 10/17/23 14:10 Labs: Lab Results 10/17/23 10/17/23 Range/Units 14:10 17:37 WBC 11.2 H (4.8-10.8) X10*3/uL RBC 4.44 L (4.60-5.80) X10*6/uL Hgb 11.4 L (14.0-18.0) g/dl Hct 37.0 L (42.0-52.0) % MCV 83.3 (80.0-98.0) fL MCH 25.7 L (27.0-33.0) pg MCHC 30.8 L (31.0-36.0) g/dl RDW 14.0 (11.0-16.0) % Plt Count 237 D (160-400) X10*3/uL MPV 10.7 (9.4-12.4) fL Immature Gran % (Auto) 0.4 (0.0-0.4) % Neut % (Auto) 65.6 (45-73) % Lymph % (Auto) 24.4 (20-40) % Mckinley % (Auto) 6.9 (2-11) % Eos % (Auto) 1.8 (0-4) % Baso % (Auto) 0.9 (0-2) % Lymph # (Auto) 2.7 (1.2-4.9) X10*3/uL Mckinley # (Auto) 0.8 (0.1-1.2) X10*3/uL Eos # (Auto) 0.2 (0.0-0.4) X10*3/uL Baso # (Auto) 0.1 (0.0-0.2) X10*3/uL Abs Immat Gran (auto) 0.04 H (0.00-0.03) X10*3/uL Absolute Neuts (auto) 7.4 (2.0-8.3) x10*3/uL Absolute Nucleated RBC 0.000 (0.0-0.012) X10*3/uL Nucleated RBC % (auto) 0.0 (0.0-0.2) /100WBC PT 10.8 L (11.1-13.3) SEC INR 0.9 (0.9-1.1) Sodium 137 (135-145) mmol/L Potassium 4.9 D (3.3-5.1) mmol/L Chloride 106 (96-108) mmol/L Carbon Dioxide 27 (22-29) mmol/L Anion Gap 9 L (12-20) BUN 38 H (9-16) mg/dL Creatinine 2.40 H (0.5-1.4) mg/dL Estim Creat Clear Calc 22.8 Estimated GFR 27 Random Glucose 328 H (60-115) mg/dL Calcium 8.8 D (8.4-10.2) mg/dL Magnesium 2.3 (1.6-2.6) mg/dL Total Bilirubin 0.3 (0.0-1.0) mg/dL Direct Bilirubin 0.1 (0.0-0.5) mg/dL AST 14 (5-37) U/L ALT 10 (0-40) U/L Alkaline Phosphatase 130 H (39-117) U/L Troponin I High Sens 18.6 22.2 (<3.5-35.0) ng/L Total Protein 7.6 (6.5-8.0) g/dL Albumin 3.8 (3.5-5.0) g/dL Lipase 30 (8-78) U/L Independent Interpretation I performed an independent interpretation of an: EKG Interpretation: EKG revealing normal sinus rhythm at a ventricular rate of 65 beats per minute, There is ST depression seen in lead1, aVL, V5 and V6. Compared EKG with previous EKG in scans performed on December 20, 2021 at [facility] which show these findings as well. EKG was reviewed with my attending physician Dr Ospina, agree that this is an old finding. Radiology Impression Discussion of test interpretation with radiology: I have reviewed the radiologist's reading. Radiologist Impression: XAMINATION: CT brain, CT cervical spine, CT chest, abdomen pelvis without contrast. CLINICAL INDICATIONS: Fall. TECHNIQUE: 5 mm thin axial and reformatted 2 mm thin sagittal and coronal images of brain were obtained. Axial 3 mm thin and reformatted 2 mm thin sagittal and coronal images of cervical spine were obtained. Lastly 5 mm thin axial and reformatted 3 mm thin sagittal and coronal images of chest, abdomen and pelvis were obtained without contrast. DLP [id number]. This CT examination was performed using dose optimization technique as appropriate, variously including the following: Automated exposure control Adjustment of MA and/or KV according to patient size(this includes techniques or standardized protocols for targeted exams where dose is matched to indication/reason for exam; extremities or head. Use of iterative reconstruction techniques. FINDINGS: BRAIN: There is no acute intra-axial, extra-axial bleed, masses or midline shift there is no acute infarction in evolution. There is lacunar infarction in right internal capsule and basal ganglia. The lateral ventricles are symmetrical in size and configuration but enlarged. There is diffuse periventricular hypodensity in both cerebral hemispheres without mass effect. Bone windows reveal no calvarial abnormality. There is no scalp soft tissue abnormality. Bilateral paranasal sinuses and mastoid air cells are well-aerated with air-fluid level in the right maxillary sinus. CERVICAL SPINE: On sagittal reconstructed images there is maintained cervical lordosis. The vertebral heights, alignment and disc heights are normal. The craniovertebral junction and C1-C2 alignment is normal. There is no visible acute fracture, dislocation or subluxation seen. The prevertebral and paravertebral soft tissues are normal. Central trachea and the bronchi are widely patent. Lung apices are clear. There is mild bilateral apical pleural thickening. CHEST: LUNGS: The lungs are well-expanded and clear of contusion or consolidation. There is a 2 mm linear nodule right upper lobe axial image 18/25, 2 mm nodule left lower lobe superior segment axial image 29/25. There is dependent bibasilar atelectasis. Mediastinum: Heart size and the great vessels are normal caliber. Central trachea and bronchi are widely patent. The thyroid lobes are symmetric and normal. The aorta is atherosclerotic without dilation. There is significant coronary artery calcification present. The heart size is normal. No pericardial effusion seen. There is a small hiatal hernia. There are benign precarinal tracheal lymph nodes. Pleura: There is no pleural effusion or thickening. Axilla: The axillae and the chest wall appears unremarkable. Osseous structures: No aggressive lytic or sclerotic process seen. There is moderate ventral spondylosis dorsal spine. Abdomen and pelvis: Liver, ducts and gallbladder: The liver is normal size, contour and density. No focal lesion or intrahepatic ductal dilatation seen. There is a punctate radiopaque density in the dependent segment of the gallbladder likely a small gallstone. No wall thickening seen. Spleen: Unremarkable. Pancreas: Unremarkable. Adrenal glands: Unremarkable. Kidneys and ureter: Both kidneys are normal size, shape and position. There are vascular calcifications in the renal hilum. No evidence of hydronephrosis. Abdominal wall: Unremarkable. GI tract: There is scattered stool and gas seen in colon without distention. No free air, free fluid. No evidence of retroperitoneal hematoma or mass. Pelvis: The prostate gland is mildly enlarged. The bladder is nondistended with nonspecific mild anterior and superior bladder wall thickening measuring 5 mm. No abnormal pelvic lymph nodes. Osseous structures: No aggressive lytic or sclerotic process seen. CT/CT abdomen pelvis wo IV con IMPRESSION: No acute intracranial process seen No evidence of fracture, dislocation or subluxation in cervical spine. Small insignificant pulmonary nodules, incidental finding. No lung contusion, hematoma or pneumothorax. No osseous bony abnormality. Unremarkable CT abdomen pelvis. Especially no retroperitoneal bleed, free air. Nonspecific mild anterior and superior bladder wall thickening. Dictated By: Justin Arizmendi MD External Record Review External record reviewed: Inpatient record, Office record, Outpatient record, Prior outpatient labs, Prior outpatient radiology, Primary care record and Outside ED record Critical Care Time Critical Care Time Critical Care Time: Yes Total Critical Care Time: 60 Attestation: I have personally provided critical care time exclusive of time spent on separately billable procedures. Time includes review of lab data, radiology results, discussion with consultants, and monitoring for potential decompensation. Intervention performed as documented. Discharge Plan Discharge Clinical Impression: Rib contusion, Fall Patient Disposition: Home, Self-Care Instructions: Fall Prevention for Older Adults (ED), Fall Prevention (ED) Additional Instructions: You presented to the emergency department after a fall [address] days [address] Your head CT, neck CT, chest CT and abdominal CT did not show any new injury. Please use incentive spirometer to prevent pneumonia. You likely bruised her ribs. Please continue to take deep breaths to prevent pneumonia. You may take Tylenol as needed for pain. Lidocaine patches can also help for pain. If any new or worsening symptoms occur, including but not limited to fevers, chills, headaches, dizziness, chest pain or shortness of breath, please return to the emergency department for further evaluation. Se present? en urgencias tras rick ca?da hace 2 d?as. Lanza tomograf?a computarizada de neva, tomograf?a computarizada de solitario, tomograf?a computarizada de t?rax y tomograf?a computarizada abdominal no mostraron ninguna lesi?n nueva. Utilice un espir?metro incentivador para prevenir la neumon?a. Probablemente le lastimaste las costillas. Contin?e respirando profundamente para prevenir la neumon?a. Puede laya Tylenol seg?n sea necesario para el dolor. Los parches de lidoca?na tambi?n pueden ayudar con el dolor. Si se presenta alg?n s?ntoma nuevo o que empeora, incluidos, entre otros, fiebre, escalofr?os, faiza de neva, mareos, dolor en el pecho o dificultad para respirar, regrese al departamento de emergencias para rick evaluaci?n adicional. Prescriptions: No Action tamsulosin 0.4 mg capsule 0.4 mg PO BEDTIME 90 Days Qty: 90 1RF Myrbetriq 25 mg tablet extended release 24 hr 25 mg PO QAM 90 Days Qty: 90 1RF oxycodone-acetaminophen [Percocet] 5-325 mg tablet 1 tab PO Q4-6H PRN (Reason: pain) Qty: 10 0RF insulin lispro [Humalog KwikPen Insulin] 100 unit/mL insulin pen 6 unit subcut DAILY@1630 Tresiba FlexTouch U-200 200 unit/mL (3 mL) insulin pen 30 unit subcut DAILY Trulicity 0.75 mg/0.5 mL pen injector 0.75 mg subcut QWEEK oseltamivir 30 mg Capsule 30 mg PO BEDTIME Qty: 2 0RF cefuroxime axetil 250 mg tablet 250 mg PO Q12H Qty: 14 0RF azithromycin 500 mg tablet 500 mg PO DAILY 5 Days Qty: 5 0RF lisinopril 5 mg tablet 0.5 tab PO DAILY@1700 Qty: 15 0RF furosemide 20 mg tablet 20 mg PO Q2D Qty: 15 0RF (DME) lancets Misc See Rx Instructions .ROUTE .MEDSUPPLY Qty: 100 Rx Instructions: As directed (DME) pen needle, diabetic 32 gauge x 5/32 needle See Rx Instructions .ROUTE .MEDSUPPLY Qty: 50 Rx Instructions: As directed ergocalciferol (vitamin D2) 1,250 mcg (50,000 unit) capsule 1,250 mcg PO QWEEK hydralazine 50 mg tablet 50 mg PO TIDWM folic acid 1 mg tablet 1 mg PO QAM aspirin 81 mg tablet,chewable 1 tab PO BEDTIME citalopram 40 mg tablet 40 mg PO DAILY (DME) blood sugar diagnostic Strip See Rx Instructions Not Applicable .MEDSUPPLY Qty: 10 Rx Instructions: As directed amlodipine 10 mg tablet 10 mg PO DAILY melatonin 5 mg tablet 5 mg PO BEDTIME PRN (Reason: insomnia) atorvastatin 80 mg tablet 80 mg PO BEDTIME bupropion HCl 100 mg tablet sustained-release 12 hr 100 mg PO QAM thiamine HCl (vitamin B1) 100 mg tablet 100 mg PO DAILY carvedilol 6.25 mg tablet 6.25 mg PO BID Interventions: ED Discharge Assessment Last Done: 10/17/23 18:32 Discharge Date/Time: 10/17/23 18:33
--- NOTE | 2023-10-17 13:50 | ECG_ITS ---
Test Reason : DIZZINESS Blood Pressure : / mmHG Vent. Rate : 065 BPM Atrial Rate : 065 BPM P-R Int : 170 ms QRS Dur : 078 ms QT Int : 432 ms P-R-T Axes : 065 048 117 degrees QTc Int : 449 ms Normal sinus rhythm ST & T wave abnormality, consider lateral ischemia Abnormal ECG When compared to the previous EKG of Lateral ST changes are noted Referred By: Natalya Diane Electronically Signed By:AKIKO RIVERA MD
[2023-10-17 14:16] LABS: MANUAL DIFF FLAG NO
[2023-10-17 14:19] LABS: Basophils Absolute Auto 0.1 X10*3/uL (0.0-0.2); Basophils Percent Auto 0.9 % (0-2); Eosinophils Absolute Auto 0.2 X10*3/uL (0.0-0.4); Eosinophils Percent Auto 1.8 % (0-4); Hemoglobin 11.4 g/dl (14.0-18.0); Imm Gran Abs Auto 0.04 X10*3/uL (0.00-0.03); Imm Gran Pct Auto 0.4 % (0.0-0.4); Lymphocytes Absolute Auto 2.7 X10*3/uL (1.2-4.9); Lymphocytes Percent Auto 24.4 % (20-40); Mean Corpuscular HGB Conc 30.8 g/dl (31.0-36.0); Mean Corpuscular Hemoglobin 25.7 pg (27.0-33.0); Mean Corpuscular Volume 83.3 fL (80.0-98.0); Mean Platelet Volume 10.7 fL (9.4-12.4); Monocytes Absolute Auto 0.8 X10*3/uL (0.1-1.2); Monocytes Percent Auto 6.9 % (2-11); Neutrophils Absolute Auto 7.4 x10*3/uL (2.0-8.3); Neutrophils Percent Auto 65.6 % (45-73); Platelet Count 237 X10*3/uL (160-400); Red Blood Count 4.44 X10*6/uL (4.60-5.80); White Blood Count 11.2 X10*3/uL (4.8-10.8)
[2023-10-17 14:28] LABS: INTERNATIONAL NORM RATIO 0.9 (0.9-1.1); Prothrombin Time 10.8 SEC (11.1-13.3)
[2023-10-17 14:33] LABS: Alanine Aminotransferase 10 U/L (0-40); Albumin Level 3.8 g/dL (3.5-5.0); Alkaline Phosphatase 130 U/L (39-117); Anion Gap 9 (12-20); Aspartate Amino Transferase 14 U/L (5-37); Bilirubin Direct 0.1 mg/dL (0.0-0.5); Bilirubin Total 0.3 mg/dL (0.0-1.0); Blood Urea Nitrogen 38 mg/dL (9-16); Calcium 8.8 mg/dL (8.4-10.2); Carbon Dioxide 27 mmol/L (22-29); Chloride 106 mmol/L (96-108); Creatinine Clr Calc Pharmacy 22.8; Estimated Glomerular Filt Rate 27; Glucose Random 328 mg/dL (60-115); Lipase 30 U/L (8-78); Magnesium 2.3 mg/dL (1.6-2.6); Potassium 4.9 mmol/L (3.3-5.1); Sodium 137 mmol/L (135-145); Total Protein 7.6 g/dL (6.5-8.0)
[2023-10-17 14:40] LABS: Troponin-I High Sensitivity 18.6 ng/L (<3.5-35.0)
[2023-10-17 18:07] LABS: Troponin-I High Sensitivity 22.2 ng/L (<3.5-35.0)
== END 2023-10-17 18:33 | disposition home or self-care (01) ==
PROVIDERS: Physician Assistant Medical; Emergency Provider Emergency Medicine Emergency Medical Services; PCP Family Medicine
DX: S20.211A Contusion of right front wall of thorax, initial encounter (principal); R07.89 Other chest pain; R51.9 Headache, unspecified; R10.2 Pelvic and perineal pain; M54.2 Cervicalgia; M54.50 Low back pain, unspecified; R42 Dizziness and giddiness; W01.10XA Fall on same level from slipping, tripping and stumbling with subsequent striking against unspecified object, initial encounter; Y93.9 Activity, unspecified; Y92.9 Unspecified place or not applicable; Y99.9 Unspecified external cause status; Z79.899 Other long term (current) drug therapy
CPT/HCPCS: 36415; 70450; 71046; 71250; 72125; 74176; 80048; 80076; 83690; 83735; 84484; 85025; 85610; 93005; 99283; 99284

== ENCOUNTER → 2023-10-17 13:50 | Outpatient (BNV) | payer MEDICARE, MEDICAID, SELFPAY | PROVIDERS: Emergency Provider Emergency Medicine Emergency Medical Services; PCP Family Medicine; Visit Provider Internal Medicine Cardiovascular Disease | DX: R94.31 Abnormal electrocardiogram [ECG] [EKG] (principal) | CPT/HCPCS: 93010 ==

== ENCOUNTER 2024-01-28 13:29 | Emergency (ER) | payer MEDICARE, MEDICAID, SELFPAY ==
--- NOTE | ~2024-01-28 | XR_ITS ---
EXAMINATION: XR FOOT, RIGHT CLINICAL INFORMATION: Right posterior foot ulcer COMPARISON: 04/09/2014 TECHNIQUE: AP, lateral, and oblique views of the right foot. FINDINGS: No cortical erosion or periosteal reaction to suggest osteomyelitis. Small enthesophyte at the Achilles tendon insertion, similar to previous. Diffuse vascular calcifications. Mild degenerative findings without significant change. XR/XR foot RT 2V IMPRESSION: No evidence of osteomyelitis. No acute osseous abnormality. Mild degenerative findings.
--- NOTE | ~2024-01-28 | US_ITS ---
EXAMINATION: US LOWER EXTREMITY DUPLEX, RIGHT CLINICAL INFORMATION: Arterial occlusion TECHNIQUE: Real-time ultrasound and Doppler techniques (integrating B-mode 2-D vascular images, Doppler spectral analysis and color flow Doppler imaging) were utilized to interrogate the lower extremities. COMPARISON: None FINDINGS: RIGHT LEG: Common femoral artery: 140 cm/s, Triphasic Profunda femoris artery: 78 cm/s, biphasic Superficial femoral artery (proximal): 65 cm/s, monophasic Superficial femoral artery (mid): 132 cm/s, monophasic Superficial femoral artery (distal): 76 cm/s, biphasic Popliteal artery: 82 cm/s, biphasic Anterior tibial artery: 7 cm/s, monophasic Posterior tibial artery: 46 cm/s, monophasic Peroneal artery: 46 cm/s, monophasic Dorsalis pedis artery: 11 cm/s, monophasic US/US arterial duplex LE RT IMPRESSION: 1. Hemodynamically significant stenosis of the right mid-distal femoral artery. 2. Multivessel tibial atherosclerotic disease receiving retrograde flow from intramuscular collaterals. If clinically indicated, recommend CTA lower extremity runoff.
[2024-01-28 14:08] VITALS: BP 146/82; PULSE 71; RESP 17; TEMP 36.8; O2SAT 98; BMI 25.8
--- NOTE | 2024-01-28 14:13 | ED_ITS ---
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 No trauma no drainage no fevers. He has not used any dressings or seen a provider for this. MD complaint: Heel wound Onset (ago): day(s) (several) Location: right and lower extremity Radiation: non-radiation Severity: moderate Quality: aching Pain Consistency: intermittent Relieving factors: none Exacerbating factors: other (palpation) Associated symptoms: denies other symptoms Treatments prior to arrival: none Related Data Home Medications Medication Instructions Recorded Confirmed amlodipine 10 mg tablet 10 mg PO DAILY 10/04/20 02/20/22 aspirin 81 mg chewable tablet 1 tab PO BEDTIME 10/04/20 02/20/22 atorvastatin 80 mg tablet 80 mg PO BEDTIME 10/04/20 02/20/22 blood sugar diagnostic #10 ea 10/04/20 02/20/22 bupropion HCl 100 mg tablet,12 hr 100 mg PO QAM 10/04/20 02/20/22 sustained-release carvedilol 6.25 mg tablet 6.25 mg PO BID 10/04/20 02/20/22 citalopram 40 mg tablet 40 mg PO DAILY 10/04/20 02/20/22 ergocalciferol (vitamin D2) 1,250 1,250 mcg PO QWEEK 10/04/20 02/20/22 mcg (50,000 unit) capsule folic acid 1 mg tablet 1 mg PO QAM 10/04/20 02/20/22 hydralazine 50 mg tablet 50 mg PO TIDWM 10/04/20 02/20/22 melatonin 5 mg tablet 5 mg PO BEDTIME PRN insomnia 10/04/20 02/20/22 pen needle, diabetic 32 gauge x #50 ea 10/04/20 02/20/22 thiamine HCl (vitamin B1) 100 mg 100 mg PO DAILY 10/04/20 02/20/22 tablet lancets #100 ea 11/01/20 02/20/22 dulaglutide 0.75 mg/0.5 mL 0.75 mg subcut QWEEK 02/20/22 02/20/22 subcutaneous pen injector (Trulicity) insulin degludec 200 unit/mL (3 30 unit subcut DAILY 02/20/22 02/20/22 mL) subcutaneous pen (Tresiba FlexTouch U-200 insulin) insulin lispro 100 unit/mL 6 unit subcut DAILY@1630 02/20/22 02/20/22 subcutaneous pen (Humalog KwikPen (U-100) Insulin) Previous Rx's Medication Instructions Recorded oxycodone-acetaminophen 5 mg-325 1 tab PO Q4-6H PRN pain #10 tabs 01/23/21 mg tablet (Percocet) azithromycin 500 mg tablet 500 mg PO DAILY 5 days #5 tabs 02/22/22 cefuroxime axetil 250 mg tablet 250 mg PO Q12H #14 tabs 02/22/22 furosemide 20 mg tablet 20 mg PO Q2D #15 tabs 02/22/22 lisinopril 5 mg tablet 0.5 tab PO DAILY@1700 #15 tabs 02/22/22 oseltamivir 30 mg capsule 30 mg PO BEDTIME #2 caps 02/22/22 mirabegron 25 mg tablet,extended 25 mg PO QAM 90 days #90 tabs 10/08/22 release 24 hr (Myrbetriq) tamsulosin 0.4 mg capsule 0.4 mg PO BEDTIME 90 days #90 caps 10/08/22 cephalexin 500 mg capsule 500 mg PO TID #21 caps 01/28/24 dressing,kokymiqo-cfdbgz-mum 1 ea topical DAILY #50 ea 01/28/24 alginate-carboxymethylcellulose 2 X 2 foam bandage 4 X 4 (Mepilex) #5 ea 01/28/24 Allergies Allergy/AdvReac Type Severity Reaction Status Date / Time No Known Allergies Allergy Verified 10/17/23 11:48 [No Known Allergies*] Review of Systems 2 Review of Systems: Constitutional : No Fever, No Chills ENT/Mouth : No sore throat, No Rhinorrhea Eyes: No Eye Pain, No Swelling, No Redness Cardiovascular : No Chest Pain, No SOB Respiratory : No Cough, No Sputum Gastrointestinal : No Nausea, No Vomiting, No Diarrhea, No abdominal Pain Genitourinary : No Dysuria, No Hematuria Musculoskeletal : No joint pain, No Myalgias, No Joint Swelling Skin : No Skin Lesions, positive skin rash Neuro : No Weakness, No Numbness, No Headache Psych : No Anxiety, No Depression All other systems reviewed and are negative [facility] Past Medical History Attestation statement: The following information was validated with the patient. Source: old records reviewed Medical History CVA (cerebral vascular accident) Type 2 diabetes mellitus with polyneuropathy Peripheral neuropathy Depression Chronic kidney disease, stage 3 Type 2 diabetes mellitus with chronic kidney disease Type 2 diabetes mellitus with hyperglycemia, with long-term current use of insulin Essential hypertension Hyperlipidemia LDL goal <70 Surgical History History of below-knee amputation of left lower extremity Hx of colonoscopy Family History Family History Father Diabetes Mother Diabetes Son Diabetes Social History Social History Household Members: Family Housing: Apartment Do you presently have visiting nurse or other home services: Yes Patient Tobacco Use Status: Current everyday Tobacco user Tobacco use type: Cigarette Cigarette Packs Per Day: 0.5 Cigarettes Per Day: 10.0 Advance Directives Date on File: 02/20/22 service: No Current occupational status: retired Physical Exam ED Vital Signs: Vital Signs - 24 hr 01/28/24 14:08 01/28/24 20:37 01/28/24 21:06 Temperature 98.2 F 97.4 F 98.1 F Pulse Rate 71 78 76 Respiratory Rate 17 18 16 Blood Pressure 146/82 H 203/89 H 195/73 H Pulse Oximetry 98 96 96 Oxygen Delivery Method Room Air Room Air Room Air BMI result Body Mass Index 25.8 Appearance: Alert. Oriented X3. No acute distress. Eyes: Pupils equal, round and reactive to light. ENT: Pharynx normal. Neck: Normal inspection. Neck supple. CVS: Normal heart rate and rhythm. Pulses normal. Respiratory: No respiratory distress. Breath sounds normal. Abdomen: Soft and nontender. Skin: Skin warm and dry. Normal skin color. Normal skin turgor. Extremities: No lower extremity edema. R heel about nickel size area with center area of dark eschar no surrounding erythema, no swelling, no purulence I can feel a DP pulse no ext erythema Neuro: Oriented X 3. No motor deficit. No sensory deficit. Course Course Course Narrative: RME: 73-year-old male history of diabetes and peripheral arterial disease presents to ED for right foot nonhealing posterior ulcer without any trauma with mild drainage. Patient denies any fever or chills. Right lower extremity normal temperature negative for any black gangrene. Posterior plantar also has some eschar dry drainage. X-ray labs arterial ultrasound ordered. Medications Administered Discontinued Medications Generic Name Dose Route Start Last Admin Trade Name Freq PRN Reason Stop Dose Admin Cephalexin HCl 500 mg 01/28/24 22:05 01/28/24 22:21 Cephalexin 500 Mg Capsule PO 01/28/24 22:06 500 mg ONCE ONE Administration Sodium Zirconium Cyclosilicate 10 gm 01/28/24 21:30 01/28/24 22:19 Sodium Zirconium Cyclosilicate 5 Gm Powd.Pack PO 01/28/24 21:31 5 gm ONCE ONE Administration Medical Decision Making Medical Decision Making [facility] Narrative: 73 yo male with PMH of CVA, CAD, PVD prior amputation, pneumonia, CKD, DM, HTN, HLD here with R heel ulcer no signs of abscess or surrounding cellulitis has distal pulses at this time will clean the wound apply dressing asked for VNA to come to the house ordered cephalexin and home dressings along with referral to wound care and vascular. He has no systemic symptoms. He is not toxic appearing. Xray and arterial study at baseline with pulses intact. Differential Diagnosis Differential Diagnoses: The differential diagnosis associated with the presentation includes pressure ulcer, PVD, osteo Admission/Observation Consideration of admission/observation: Escalation of care including admission/observation considered labs at baseline, xray normal no systemic symptoms Lab Data [facility] Lab Attestation statement: I reviewed the patient's lab results. 01/28/24 15:52 01/28/24 15:52 Labs: Lab Results 01/28/24 Range/Units 15:52 WBC 11.8 H (4.8-10.8) X10*3/uL RBC 4.20 L (4.60-5.80) X10*6/uL Hgb 10.8 L (14.0-18.0) g/dl Hct 34.4 L (42.0-52.0) % MCV 81.9 (80.0-98.0) fL MCH 25.7 L (27.0-33.0) pg MCHC 31.4 (31.0-36.0) g/dl RDW 14.8 (11.0-16.0) % Plt Count 231 (160-400) X10*3/uL MPV 10.2 (9.4-12.4) fL Immature Gran % (Auto) 0.4 (0.0-0.4) % Neut % (Auto) 68.5 (45-73) % Lymph % (Auto) 21.0 (20-40) % Travis % (Auto) 7.7 (2-11) % Eos % (Auto) 1.8 (0-4) % Baso % (Auto) 0.6 (0-2) % Lymph # (Auto) 2.5 (1.2-4.9) X10*3/uL Travis # (Auto) 0.9 (0.1-1.2) X10*3/uL Eos # (Auto) 0.2 (0.0-0.4) X10*3/uL Baso # (Auto) 0.1 (0.0-0.2) X10*3/uL Abs Immat Gran (auto) 0.05 H (0.00-0.03) X10*3/uL Absolute Neuts (auto) 8.1 (2.0-8.3) x10*3/uL Absolute Nucleated RBC 0.000 (0.0-0.012) X10*3/uL Nucleated RBC % (auto) 0.0 (0.0-0.2) /100WBC ESR 27 H (0-15) MM/HR PT 10.7 L (11.1-13.3) SEC INR 0.9 (0.9-1.1) APTT 29.2 (26.0-36.8) SEC Sodium 137 (135-145) mmol/L Potassium 5.3 H (3.3-5.1) mmol/L Chloride 109 H (96-108) mmol/L Carbon Dioxide 23 (22-29) mmol/L Anion Gap 10 L (12-20) BUN 37 H (9-16) mg/dL Creatinine 2.67 H (0.5-1.4) mg/dL Estim Creat Clear Calc 23.4 Estimated GFR 24 Random Glucose 286 H (60-115) mg/dL Calcium 8.6 (8.4-10.2) mg/dL Total Bilirubin 0.3 (0.0-1.0) mg/dL AST 15 (5-37) U/L ALT 14 (0-40) U/L Alkaline Phosphatase 134 H (39-117) U/L C-Reactive Protein 1.46 H (< or = 0.50) mg/dL Total Protein 7.4 (6.5-8.0) g/dL Albumin 3.8 (3.5-5.0) g/dL Independent Interpretation I performed an independent interpretation of an: Plain X-Ray (no osteo) and Ultrasound (has pulses but PAD) Radiology Impression Discussion of test interpretation with radiology: I have reviewed the radiologist's reading. Independent Historian Clinical information obtained from an independent historian. History obtained from or confirmed by: Other (family) External Record Review External record reviewed: Inpatient record Prescription Management I considered prescription management with: Antibiotic and Other Discharge Plan Discharge Clinical Impression: Heel ulcer Qualifiers: Laterality: right Non-pressure ulcer stage: with fat layer exposed Qualified Code(s): L97.412 - Non-pressure chronic ulcer of right heel and midfoot with fat layer exposed Patient Disposition: Home, Self-Care Instructions: Chronic Wounds (ED), Acute Wounds (ED) Additional Instructions: return for odors, yellow drainage, red streaks, fevers or any other concerns. follow up with Annamaria and wound care center call tomorrow for appointments. Regrese por edgardo, katherine gomez, anat contreras, fikellire o cualquier otra inquietud. Suzi un seguimiento con Annamaria y llame al centro de cuidado de heridas ma?erica para programar citas. Prescriptions: New cephalexin 500 mg capsule 500 mg PO TID Qty: 21 0RF dress,hadqkfq-rkfu-tsietkm-cmc 2 X 2 bandage 1 ea topical DAILY Qty: 50 0RF (DME) Mepilex 4 X 4 bandage See Rx Instructions .Route Qty: 5 3RF Rx Instructions: As directed change dressing every 3 days No Action tamsulosin 0.4 mg capsule 0.4 mg PO BEDTIME 90 Days Qty: 90 1RF Myrbetriq 25 mg tablet extended release 24 hr 25 mg PO QAM 90 Days Qty: 90 1RF oxycodone-acetaminophen [Percocet] 5-325 mg tablet 1 tab PO Q4-6H PRN (Reason: pain) Qty: 10 0RF insulin lispro [Humalog KwikPen Insulin] 100 unit/mL insulin pen 6 unit subcut DAILY@1630 Tresiba FlexTouch U-200 200 unit/mL (3 mL) insulin pen 30 unit subcut DAILY Trulicity 0.75 mg/0.5 mL pen injector 0.75 mg subcut QWEEK oseltamivir 30 mg Capsule 30 mg PO BEDTIME Qty: 2 0RF cefuroxime axetil 250 mg tablet 250 mg PO Q12H Qty: 14 0RF azithromycin 500 mg tablet 500 mg PO DAILY 5 Days Qty: 5 0RF lisinopril 5 mg tablet 0.5 tab PO DAILY@1700 Qty: 15 0RF furosemide 20 mg tablet 20 mg PO Q2D Qty: 15 0RF (DME) lancets Misc See Rx Instructions .ROUTE .MEDSUPPLY Qty: 100 Rx Instructions: As directed (DME) pen needle, diabetic 32 gauge x 5/32 needle See Rx Instructions .ROUTE .MEDSUPPLY Qty: 50 Rx Instructions: As directed ergocalciferol (vitamin D2) 1,250 mcg (50,000 unit) capsule 1,250 mcg PO QWEEK hydralazine 50 mg tablet 50 mg PO TIDWM folic acid 1 mg tablet 1 mg PO QAM aspirin 81 mg tablet,chewable 1 tab PO BEDTIME citalopram 40 mg tablet 40 mg PO DAILY (DME) blood sugar diagnostic Strip See Rx Instructions Not Applicable .MEDSUPPLY Qty: 10 Rx Instructions: As directed amlodipine 10 mg tablet 10 mg PO DAILY melatonin 5 mg tablet 5 mg PO BEDTIME PRN (Reason: insomnia) atorvastatin 80 mg tablet 80 mg PO BEDTIME bupropion HCl 100 mg tablet sustained-release 12 hr 100 mg PO QAM thiamine HCl (vitamin B1) 100 mg tablet 100 mg PO DAILY carvedilol 6.25 mg tablet 6.25 mg PO BID Referrals: Elyse MARTINEZ [Outside] Vick Yin MD [Physician] - Sariah Alvarado MD [Physician] - (wound care center any provider) Interventions: ED Discharge Assessment Last Done: 01/28/24 22:30 Discharge Date/Time: 01/28/24 22:30 Print Language: Turkish
[2024-01-28 15:59] LABS: MANUAL DIFF FLAG NO
[2024-01-28 16:03] LABS: Basophils Absolute Auto 0.1 X10*3/uL (0.0-0.2); Basophils Percent Auto 0.6 % (0-2); Eosinophils Absolute Auto 0.2 X10*3/uL (0.0-0.4); Eosinophils Percent Auto 1.8 % (0-4); Hematocrit 34.4 % (42.0-52.0); Hemoglobin 10.8 g/dl (14.0-18.0); Imm Gran Abs Auto 0.05 X10*3/uL (0.00-0.03); Imm Gran Pct Auto 0.4 % (0.0-0.4); Lymphocytes Absolute Auto 2.5 X10*3/uL (1.2-4.9); Mean Corpuscular HGB Conc 31.4 g/dl (31.0-36.0); Mean Corpuscular Hemoglobin 25.7 pg (27.0-33.0); Mean Corpuscular Volume 81.9 fL (80.0-98.0); Mean Platelet Volume 10.2 fL (9.4-12.4); Monocytes Absolute Auto 0.9 X10*3/uL (0.1-1.2); Monocytes Percent Auto 7.7 % (2-11); Neutrophils Absolute Auto 8.1 x10*3/uL (2.0-8.3); Neutrophils Percent Auto 68.5 % (45-73); Platelet Count 231 X10*3/uL (160-400); Red Cell Distribution Width 14.8 % (11.0-16.0); White Blood Count 11.8 X10*3/uL (4.8-10.8)
[2024-01-28 16:10] LABS: INTERNATIONAL NORM RATIO 0.9 (0.9-1.1); Prothrombin Time 10.7 SEC (11.1-13.3)
[2024-01-28 16:13] LABS: Partial Thromboplastin Time 29.2 SEC (26.0-36.8)
[2024-01-28 16:16] LABS: Alanine Aminotransferase 14 U/L (0-40); Albumin Level 3.8 g/dL (3.5-5.0); Alkaline Phosphatase 134 U/L (39-117); Anion Gap 10 (12-20); Aspartate Amino Transferase 15 U/L (5-37); Bilirubin Total 0.3 mg/dL (0.0-1.0); Blood Urea Nitrogen 37 mg/dL (9-16); C Reactive Protein 1.46 mg/dL (< or = 0.50); Calcium 8.6 mg/dL (8.4-10.2); Carbon Dioxide 23 mmol/L (22-29); Chloride 109 mmol/L (96-108); Creatinine Clr Calc Pharmacy 23.4; Estimated Glomerular Filt Rate 24; Glucose Random 286 mg/dL (60-115); Potassium 5.3 mmol/L (3.3-5.1); Sodium 137 mmol/L (135-145); Total Protein 7.4 g/dL (6.5-8.0)
[2024-01-28 16:45] LABS: Erythrocyte Sedimentation Rate 27 MM/HR (0-15)
[2024-01-28 20:37] VITALS: BP 203/89; PULSE 78; RESP 18; TEMP 36.3; O2SAT 96
[2024-01-28 21:06] VITALS: BP 195/73; PULSE 76; RESP 16; TEMP 36.7; O2SAT 96
[2024-01-28] MEDS: Sodium Zirconium Cyclosilicate 5 GM POWD.PACK 10 GM PO (22:19)
[2024-01-28] MEDS: cephALEXin 500 MG CAPSULE PO (22:21)
--- NOTE | 2024-01-28 22:22 | MHC.CM.ED ---
CM met with patient and his daughter at the request of Dr. Pandya. Pt has a non-healing ulcer on his right heel. Pt has a L BKA. HX of IDDM 2 with neuropathy and CVA. Lives with his daughter, Anyi Sawyer ([phone]).She and her father are Serbian speaking. sql programmer used. She is his sales engineer. She has no help in the home. He is wheelchair bound. Transfers with assistance-pivots only. PCP is Dr Medrano. Pt has no preference for VNA. Provider is referring patient to wound care at [facility]. Provider would like dressing changes every 2 days with Silver Alginate and Mepilex to wound. [facility] system down. Unable to access. IT called. They cannot assist as they feel it is a third democrat problem. Suggested CM manager call in am and IT for additional assistance. System was up and running without difficulty until about 0. E-mail to Akos[facility] LovingCannot complete referral tonight for VNA and can not complete HCP. Pt will discharge home. Will complete referral process 01/28.
--- NOTE | 2024-01-29 09:48 | MHC.CM.ED ---
Patient has already left ER. Referral made to Elyse MARTINEZ. [facility] is able to accept patient.
== END 2024-01-28 22:30 | disposition home or self-care (01) ==
PROVIDERS: Physician Assistant; Emergency Provider Emergency Medicine; PCP Family Medicine
DX: R60.0 Localized edema (principal); L97.412 Non-pressure chronic ulcer of right heel and midfoot with fat layer exposed; I10 Essential (primary) hypertension; M79.671 Pain in right foot; F17.200 Nicotine dependence, unspecified, uncomplicated; Z79.899 Other long term (current) drug therapy
CPT/HCPCS: 36415; 73620; 80053; 85025; 85610; 85652; 85730; 86140; 93926; 99284

== ENCOUNTER 2024-01-30 08:51 | Outpatient (RCR) | payer OTHER, SELFPAY | END 2024-05-06 16:25 | disposition other institution (70) | LOC: HO.WCC 08:51 | PROVIDERS: PCP Family Medicine; Visit Provider Surgery | DX: E11.621 Type 2 diabetes mellitus with foot ulcer (principal); L89.610 Pressure ulcer of right heel, unstageable; M71.062 Abscess of bursa, left knee; E11.22 Type 2 diabetes mellitus with diabetic chronic kidney disease; E11.40 Type 2 diabetes mellitus with diabetic neuropathy, unspecified; N18.30 Chronic kidney disease, stage 3 unspecified; Z89.512 Acquired absence of left leg below knee; Z79.4 Long term (current) use of insulin; Z79.84 Long term (current) use of oral hypoglycemic drugs; Z79.899 Other long term (current) drug therapy; Z79.2 Long term (current) use of antibiotics | CPT/HCPCS: 10060; 11042; 87070; 87073; 87186; 87205; 99212 ==

== ENCOUNTER 2024-02-24 13:22 | Emergency (ER) | payer OTHER, SELFPAY ==
--- NOTE | ~2024-02-24 | XR_ITS ---
EXAMINATION: LUMBAR SPINE AND RIGHT HIP CLINICAL INFORMATION: Fall with back and hip pain COMPARISON: CT abdomen pelvis 10/17/2023 TECHNIQUE: 3 views lumbar spine, single view pelvis with 2 additional views right hip FINDINGS: There is mild rightward convex scoliosis. Some mild spondylitic endplate changes are seen but disc spaces and vertebral body heights are well-maintained. No fractures or subluxations are seen. Extensive aortoiliofemoral calcific atherosclerotic plaque is present. No pelvic fracture is seen. The right hip appears normal without evidence of fracture. Some mild degenerative changes are seen in the right greater than left hip. XR/XR lumbar spine 2-3V IMPRESSION: No evidence of an acute osseous injury. Mild degenerative changes as described above.
--- NOTE | ~2024-02-24 | XR_ITS ---
EXAMINATION: LUMBAR SPINE AND RIGHT HIP CLINICAL INFORMATION: Fall with back and hip pain COMPARISON: CT abdomen pelvis 10/17/2023 TECHNIQUE: 3 views lumbar spine, single view pelvis with 2 additional views right hip FINDINGS: There is mild rightward convex scoliosis. Some mild spondylitic endplate changes are seen but disc spaces and vertebral body heights are well-maintained. No fractures or subluxations are seen. Extensive aortoiliofemoral calcific atherosclerotic plaque is present. No pelvic fracture is seen. The right hip appears normal without evidence of fracture. Some mild degenerative changes are seen in the right greater than left hip. XR/XR hip RT min 2V IMPRESSION: No evidence of an acute osseous injury. Mild degenerative changes as described above.
[2024-02-24 13:38] VITALS: BP 158/86; PULSE 92; O2SAT 95
--- NOTE | 2024-02-24 13:45 | ED_ITS ---
HPI - Fall General Chief Complaint: Fall Stated Complaint: SLID OUT OF W/C, BACK PAIN PER EMS Time Seen by Provider: 02/24/24 13:43 Source: patient and EMS Mode of arrival: EMS Limitations: no limitations History of Present Illness HPI Narrative: Patient slid out of his wheelchair and injured his lower back and right hip. complaint: fall Onset (ago): hour(s) Fall from: wheelchair Place fall occurred: home Related Data Home Medications ?Medication ?Instructions ?Recorded ?Confirmed amlodipine 10 mg tablet 10 mg PO DAILY 10/04/20 02/20/22 aspirin 81 mg chewable tablet 1 tab PO BEDTIME 10/04/20 02/20/22 atorvastatin 80 mg tablet 80 mg PO BEDTIME 10/04/20 02/20/22 blood sugar diagnostic #10 ea 10/04/20 02/20/22 bupropion HCl 100 mg tablet,12 hr 100 mg PO QAM 10/04/20 02/20/22 sustained-release carvedilol 6.25 mg tablet 6.25 mg PO BID 10/04/20 02/20/22 citalopram 40 mg tablet 40 mg PO DAILY 10/04/20 02/20/22 ergocalciferol (vitamin D2) 1,250 1,250 mcg PO QWEEK 10/04/20 02/20/22 mcg (50,000 unit) capsule folic acid 1 mg tablet 1 mg PO QAM 10/04/20 02/20/22 hydralazine 50 mg tablet 50 mg PO TIDWM 10/04/20 02/20/22 melatonin 5 mg tablet 5 mg PO BEDTIME PRN insomnia 10/04/20 02/20/22 pen needle, diabetic 32 gauge x #50 ea 10/04/20 02/20/22 thiamine HCl (vitamin B1) 100 mg 100 mg PO DAILY 10/04/20 02/20/22 tablet lancets #100 ea 11/01/20 02/20/22 dulaglutide 0.75 mg/0.5 mL 0.75 mg subcut QWEEK 02/20/22 02/20/22 subcutaneous pen injector (Trulicity) insulin degludec 200 unit/mL (3 30 unit subcut DAILY 02/20/22 02/20/22 mL) subcutaneous pen (Tresiba FlexTouch U-200 insulin) insulin lispro 100 unit/mL 6 unit subcut DAILY@1630 02/20/22 02/20/22 subcutaneous pen (Humalog KwikPen (U-100) Insulin) Previous Rx's ?Medication ?Instructions ?Recorded oxycodone-acetaminophen 5 mg-325 1 tab PO Q4-6H PRN pain #10 tabs 01/23/21 mg tablet (Percocet) azithromycin 500 mg tablet 500 mg PO DAILY 5 days #5 tabs 02/22/22 cefuroxime axetil 250 mg tablet 250 mg PO Q12H #14 tabs 02/22/22 furosemide 20 mg tablet 20 mg PO Q2D #15 tabs 02/22/22 lisinopril 5 mg tablet 0.5 tab PO DAILY@1700 #15 tabs 02/22/22 oseltamivir 30 mg capsule 30 mg PO BEDTIME #2 caps 02/22/22 mirabegron 25 mg tablet,extended 25 mg PO QAM 90 days #90 tabs 10/08/22 release 24 hr (Myrbetriq) tamsulosin 0.4 mg capsule 0.4 mg PO BEDTIME 90 days #90 caps 10/08/22 cephalexin 500 mg capsule 500 mg PO TID #21 caps 01/28/24 dressing,[id number] 1 ea topical DAILY #50 ea 01/28/24 alginate-carboxymethylcellulose 2 X 2 foam bandage 4 X 4 (Mepilex) #5 ea 01/28/24 Allergies Allergy/AdvReac Type Severity Reaction Status Date / Time No Known Allergies Allergy Verified 02/24/24 13:53 [No Known Allergies*] Review of Systems Review of Systems: Yes all other systems are reviewed and are negative Neurologic: Denies Sensory deficit (Neuro) [facility] Past Medical History Medical History CVA (cerebral vascular accident) Type 2 diabetes mellitus with polyneuropathy Peripheral neuropathy Depression Chronic kidney disease, stage 3 Type 2 diabetes mellitus with chronic kidney disease Type 2 diabetes mellitus with hyperglycemia, with long-term current use of insulin Essential hypertension Hyperlipidemia LDL goal <70 Surgical History History of below-knee amputation of left lower extremity Hx of colonoscopy Family History Family History Father Diabetes Mother Diabetes Son Diabetes Social History Social History Household Members: Family Housing: Apartment Do you presently have visiting nurse or other home services: Yes Patient Tobacco Use Status: Current everyday Tobacco user Tobacco use type: Cigarette Cigarette Packs Per Day: 0.5 Cigarettes Per Day: 10.0 Smoked in Last 30 Days: No Advance Directives: Yes Advance Directives on File: Yes Advance Directives Date on File: 02/20/22 service: No Current occupational status: retired Physical Exam Vital Signs: Vital Signs: Last Vital Signs Pulse 74 02/24/24 13:51 Resp 16 02/24/24 13:51 BP 157/79 H 02/24/24 13:51 Pulse Ox 94 02/24/24 13:51 O2 Del Method Room Air 02/24/24 13:51 BMI result Body Mass Index 24.6 Const: Other: chronically ill cachectic male Orientation/consciousness: oriented to person and patient oriented x3 Limitations: no limitations HEENT: Head: Yes normal to inspection Ears: external ears normal General nose exam: Normal external nose present Mouth: Normal oral and palatal mucosa present and oropharynx normal Throat: Yes posterior oropharynx normal Eyes: General: appearance normal, both eyes and all related structures Neck: Other: supple Neck: Yes normal visual inspection Chest: Chest palpation & inspection: normal inspection of the chest Resp: Auscultation: clear to auscultation bilaterally Cardio: Jugular venous distension: no JVD Rate: regular rate Rhythm: regular rhythm Heart sounds: S1 normal heart sound present and S2 normal heart sound present GI: Inspection: Yes normal to inspection Palpation (GI): Soft to palpation, nontender and No hepatosplenomegaly present Auscultation: normal bowel sounds Back/Spine/Pelvis: Other: lumbar tenderness Skin: General skin exam: no rashes or lesions noted Neuro: General: oriented to person and patient oriented x3 Cranial nerves: Yes CN's II-XII intact bilaterally Motor exam (neuro): 5/5 motor strength present throughout Sensory Exam: No Sensory deficit (Neuro) Extrem: Other: left bka, right hip tenderness with movement Psych: Appearance: grossly normal Medical Decision Making Differential Diagnosis Differential Diagnoses: The differential diagnosis associated with the presentation includes (hip fracture, lumbar fracture, back pain) Admission/Observation Consideration of admission/observation: Escalation of care including admission/observation considered (upon arrival patient was considered for admission) Independent Interpretation I performed an independent interpretation of an: Plain X-Ray (lumbar: djd, hip right no fracture, djd) Radiology Impression Discussion of test interpretation with radiology: I have reviewed the radiologist's reading. Independent Historian Clinical information obtained from an independent historian. History obtained from or confirmed by: EMS Tests considered The following testing was considered but not selected: CT of hip considered but patient is able to move extremity Chronic Conditions Patient?s care impacted by: Diabetes and Hypertension Discharge Plan Discharge Clinical Impression: Acute hip pain, Back pain Patient Disposition: Home, Self-Care Instructions: Acute Low Back Pain (ED), Hip Pain (ED) Prescriptions: No Action tamsulosin 0.4 mg capsule 0.4 mg PO BEDTIME 90 Days Qty: 90 1RF Myrbetriq 25 mg tablet extended release 24 hr 25 mg PO QAM 90 Days Qty: 90 1RF oxycodone-acetaminophen [Percocet] 5-325 mg tablet 1 tab PO Q4-6H PRN (Reason: pain) Qty: 10 0RF insulin lispro [Humalog KwikPen Insulin] 100 unit/mL insulin pen 6 unit subcut DAILY@1630 Tresiba FlexTouch U-200 200 unit/mL (3 mL) insulin pen 30 unit subcut DAILY Trulicity 0.75 mg/0.5 mL pen injector 0.75 mg subcut QWEEK oseltamivir 30 mg Capsule 30 mg PO BEDTIME Qty: 2 0RF cefuroxime axetil 250 mg tablet 250 mg PO Q12H Qty: 14 0RF azithromycin 500 mg tablet 500 mg PO DAILY 5 Days Qty: 5 0RF lisinopril 5 mg tablet 0.5 tab PO DAILY@1700 Qty: 15 0RF furosemide 20 mg tablet 20 mg PO Q2D Qty: 15 0RF cephalexin 500 mg capsule 500 mg PO TID Qty: 21 0RF dress,[id number] 2 X 2 bandage 1 ea topical DAILY Qty: 50 0RF (DME) Mepilex 4 X 4 bandage See Rx Instructions .Route Qty: 5 3RF Rx Instructions: As directed change dressing every 3 days (DME) lancets Misc See Rx Instructions .ROUTE .MEDSUPPLY Qty: 100 Rx Instructions: As directed (DME) pen needle, diabetic 32 gauge x 5/32 needle See Rx Instructions .ROUTE .MEDSUPPLY Qty: 50 Rx Instructions: As directed ergocalciferol (vitamin D2) 1,250 mcg (50,000 unit) capsule 1,250 mcg PO QWEEK hydralazine 50 mg tablet 50 mg PO TIDWM folic acid 1 mg tablet 1 mg PO QAM aspirin 81 mg tablet,chewable 1 tab PO BEDTIME citalopram 40 mg tablet 40 mg PO DAILY (DME) blood sugar diagnostic Strip See Rx Instructions Not Applicable .MEDSUPPLY Qty: 10 Rx Instructions: As directed amlodipine 10 mg tablet 10 mg PO DAILY melatonin 5 mg tablet 5 mg PO BEDTIME PRN (Reason: insomnia) atorvastatin 80 mg tablet 80 mg PO BEDTIME bupropion HCl 100 mg tablet sustained-release 12 hr 100 mg PO QAM thiamine HCl (vitamin B1) 100 mg tablet 100 mg PO DAILY carvedilol 6.25 mg tablet 6.25 mg PO BID Referrals: Harika Medrano MD [Primary Care Provider] - 5 days Print Language: Amharic
[2024-02-24 13:51] VITALS: BP 157/79; PULSE 74; RESP 16; O2SAT 94; BMI 24.6
[2024-02-24 16:28] VITALS: BP 157/61; PULSE 71; RESP 19; TEMP 36.9; O2SAT 93
[2024-02-24] MEDS: Acetaminophen 325 MG TABLET 975 MG PO (16:30)
--- NOTE | 2024-02-24 17:36 | PC.NURSE ---
PTS FAMILY HAS CHOSEN TO TAKE PT HOME VERSUS WAITING FOR EMS TRANSFER. THEY WERE ASKED DEVERL TIMES AND THEY FEEL THEY ARE ABLE T SAFELY TRANSPORT HIM HOMETHE PATIENT WAS A MAX ASSIST TO THEN VEHICLE FOR TRANSPORT HOME.
== END 2024-02-24 17:38 | disposition home or self-care (01) ==
PROVIDERS: Emergency Provider Emergency Medicine; PCP Family Medicine
DX: M25.551 Pain in right hip (principal); M54.50 Low back pain, unspecified; E11.22 Type 2 diabetes mellitus with diabetic chronic kidney disease; I12.9 Hypertensive chronic kidney disease with stage 1 through stage 4 chronic kidney disease, or unspecified chronic kidney disease; N18.30 Chronic kidney disease, stage 3 unspecified; Z86.73 Personal history of transient ischemic attack (TIA), and cerebral infarction without residual deficits; Z91.81 History of falling; Z99.3 Dependence on wheelchair
CPT/HCPCS: 72100; 73502; 99283; 99284